=== PATIENT | male | born 1975 | race Caucasian/White ===

== ENCOUNTER 2016-07-04 09:33 | Emergency (ER) | payer SELFPAY ==
[~2016-07-04] VITALS: Ht 170.2 cm; Wt 95.5 kg
[~2016-07-04 09:33] MED LIST: CIPR-9 PO; METR-1 PO; NORC5TAB PO
[2016-07-04 09:35] VITALS: BP 175/98; PULSE 88; RESP 16; TEMP 98.2; O2SAT 98
[2016-07-04] MEDS ORDERED: CEPH-460 PO (10:13)
[2016-07-04] MEDS ORDERED: IBUP800T23 PO (10:13)
[2016-07-04] MEDS ORDERED: BACT800T5 PO (10:13)
--- NOTE | 2016-07-04 11:31 | PD ---
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 Since yesterday he has had pain and swelling in the perineal region. Pain is a throbbing pain is constant and worse when sitting. Most recently he was seen here in March 2016 for this issue and at that time bedside incision and drainage was performed by colorectal surgeon Dr. Rodriguez. He has had no drainage, no fevers or chills, no abdominal pain. He has no other complaints at this time. PFSH Past Medical History Blood Disorders: No Heart Rhythm Problems: No Cancer: No Cardiovascular Problems: No High Cholesterol: No Chemotherapy: No Diabetes: No Diminished Hearing: No Endocrine: No Gastrointestinal Disorders: Yes (GALLSTONES) GERD: No Genitourinary: No Hepatitis: No Hiatal Hernia: No Hypertension: No Immune Disorder: No Musculoskeletal: No Neurologic: No Psychiatric: No Reproductive: No Respiratory: No Integumentary: Yes (PREVIOUS ABCESS IN PERINEAL AREA ) Radiation Therapy: No Ulcer: No Past Surgical History Abdominal Surgery: Yes (APPENDECTOMY) AICD: No Appendectomy: Yes Arteriovenous Shunt: No Cardiac Surgery: No Cholecystectomy: No Ear Surgery: No Endocrine Surgery: No Eye Surgery: No Genitourinary Surgery: No Gynecologic Surgery: No Insulin Pump: No Joint Replacement: No Oral Surgery: No Pacemaker: No Thoracic Surgery: No Other Surgery: Yes Social History Alcohol Use: Yes (2 beer/day) Tobacco Use: Yes (< 1 PPD) Substance Use: Yes (marijauna) Allergies-Medications (Allergen,Severity, Reaction): Coded Allergies: Codeine (Verified Allergy, Mild, NAUSEA, 07/04/16) Reported Meds & Prescriptions Reported Meds & Active Scripts Active Flagyl (Metronidazole) 500 Mg Tab 500 Mg PO BID 7 Days Cipro (Ciprofloxacin HCl) 500 Mg Tab 500 Mg PO BID 7 Days Review of Systems General / Constitutional: No: Fever, Chills Gastrointestinal: No: Nausea, Vomiting, Abdominal Pain Skin: Positive Other (soft tissue swelling, pain in the perineal region) Physical Exam Narrative GENERAL: Well-developed well-nourished male in no acute distress SKIN: Warm and dry. Examination reveals an area of induration in the perineum, tender to palpation. There is no drainage. : Normal appearing testicles and scrotum without erythema or induration of the scrotal farrar. HEAD: Atraumatic. Normocephalic. EYES: Pupils equal and round. No scleral icterus. No injection or drainage. ENT: No nasal bleeding or discharge. Mucous membranes pink and moist. NECK: Trachea midline. No JVD. CARDIOVASCULAR: Regular rate and rhythm. No murmur appreciated. RESPIRATORY: No accessory muscle use. Clear to auscultation. Breath sounds equal bilaterally. GASTROINTESTINAL: Abdomen soft, non-tender, nondistended. Hepatic and splenic margins not palpable. MUSCULOSKELETAL: No obvious deformities. No clubbing. No cyanosis. No edema. NEUROLOGICAL: Awake and alert. No obvious cranial nerve deficits. Motor grossly within normal limits. Normal speech. PSYCHIATRIC: Appropriate mood and affect; insight and judgment normal. Data Data Last Documented VS Vital Signs Date Time Temp Pulse Resp B/P Pulse Ox O2 Delivery O2 Flow Rate FiO2 07/04/16 09:35 98.2 88 16 175/98 98 Orders Ed Poc Ultrasound (07/04/16 ) Mandatory Outpatient Referral (07/04/16 12:36) [facility] Medical Decision Making Medical Screen Exam Complete: Yes Emergency Medical Condition: Yes Medical Record Reviewed: Yes Differential Diagnosis Recurrent perineal abscess, infected cyst, cellulitis, myositis Narrative Course 41-year-old male with history of recurrent perineal abscess formation presents for evaluation of 2 days of pain and soft tissue swelling the perineal region. On examination there is induration with no drainage or obvious fluctuance. Bedside ultrasound does reveal some area of hypoechoicity about 1.5 cm deep to the skin. We will contact colorectal surgeon on-call. Discussed with Dr. Rodriguez who performed previous incision and drainage and March 2016. He would like to see the patient tomorrow, July 05, in his [place] office. A mandatory outpatient referral has been placed. The patient is being discharged with Flagyl and Cipro. Diagnosis Primary Impression: Perineal abscess Referrals: Luis Rodriguez MD Additional Instructions: Follow-up with Dr. Rodriguez tomorrow in his [place] location, call his office to make an appointment and confirm the address. Warm baths 15-20 minutes at a time 3-4 times a day. Take antibiotics as prescribed. Return for any emergent medical conditions. Med/Other Pt SpecificInfo: Prescription(s) given Scripts Metronidazole (Flagyl)500 Mg [id number] Mg PO BID 7 Days Ref 0 Prov:Kusum Hicks MD 07/04/16 Ciprofloxacin (Cipro)500 Mg [id number] Mg PO BID 7 Days Ref 0 Prov:Kusum Hicks MD 07/04/16 Disposition: 01 DISCHARGE HOME Condition: Stable Clarke Arguelles Jul 04, 2016 11:31
[2016-07-04] MEDS ORDERED: METR-1 PO (12:40)
[2016-07-04] MEDS ORDERED: CIPR-9 PO (12:40)
--- NOTE | 2016-07-04 12:57 | PD ---
Data Data Last Documented VS Vital Signs Date Time Temp Pulse Resp B/P Pulse Ox O2 Delivery O2 Flow Rate FiO2 07/04/16 09:35 98.2 88 16 175/98 98 Orders Ed Poc Ultrasound (07/04/16 ) Mandatory Outpatient Referral (07/04/16 12:36) [facility] Supervised Visit with TAMMY: Yes Narrative Course The history, exam, and medical decision-making in the associated midlevel provider note were completed with my assistance. I reviewed and agree with the findings presented. I attest that I had a [id number] encounter with the patient on the same day, and personally performed and documented my assessment and findings in the medical record. *My assessment and Findings: This is a 41-year-old male who presents to the emergency department having had a peroneal abscess last drained in March by Dr. Rodriguez with increasing swelling and redness in the area of his prior abscess. On exam he has some induration and erythema but no fluctuance. A bedside ultrasound was performed which demonstrates a small fluid pocket but it nothing easily drainable in the emergency department. We spoke to Dr. Rodriguez. I think it's threes normal for the patient to be discharged on antibiotics and for him to follow up in clinic. We placed the mandatory referral. Patient was discharged home. Procedures Procedure Narrative Soft tissue ultrasound: Obvious cellulitis of the perineum with a small likely early abscess deeper than 1 cm Diagnosis Primary Impression: Perineal abscess Referrals: Luis Rodriguez MD Patient Instructions: General Instructions Departure Forms: Tests/Procedures Additional Instruction: Follow-up with Dr. Rodriguez tomorrow in his [place] location, call his office to make an appointment and confirm the address. Warm baths 15-20 minutes at a time 3-4 times a day. Take antibiotics as prescribed. Return for any emergent medical conditions. Scripts Metronidazole (Flagyl)500 Mg [id number] Mg PO BID 7 Days Ref 0 Prov:Kusum Hicks MD 07/04/16 Ciprofloxacin (Cipro)500 Mg [id number] Mg PO BID 7 Days Ref 0 Prov:Kusum Hicks MD 07/04/16 Disposition: 01 DISCHARGE HOME Condition: Stable Kusum Hicks MD Jul 04, 2016 12:57
== END 2016-07-04 13:02 | disposition home or self-care (01) ==
LOC: NEPB 09:33
DX: L02.215 Cutaneous abscess of perineum (principal)
CPT/HCPCS: 99283

== ENCOUNTER 2016-07-05 13:28 | Day surgery (SDC) | payer SELFPAY ==
[~2016-07-05] VITALS: Ht 170.2 cm; Wt 96.8 kg
[~2016-07-05 13:28] MED LIST changes: +BACT800T5 PO; +CEPH-460 PO; +IBUP800T23 PO; +NEOSTIGMINE 3 MG/3 ML SYR IV ONE; +ONDANSETRON HCL 4 MG/2 ML VIAL IV PUSH ONE; +PROPOFOL 200 MG/20 ML AMP IV ONE
[2016-07-05] MEDS ORDERED: METOPROLOL TARTRATE 25 MG TAB PO PRN (14:00)
[2016-07-05] MEDS ORDERED: SODIUM CHLORID 0.9% 500 ML IV SCH (14:00)
[2016-07-05] MEDS ORDERED: INSULIN HUMAN REGULAR 1,000 UNITS/10 ML VIAL SQ PRN (14:00)
[2016-07-05] MEDS ORDERED: LACTATED RINGER'S 1000 ML IV SCH (14:00)
[2016-07-05 14:31] VITALS: BP 149/88; PULSE 95; RESP 18; TEMP 98.8; O2SAT 98
[2016-07-05] MEDS ORDERED: DEXAMETHASONE SOD PHOS 4 MG/ML VIAL ONE (15:39)
[2016-07-05] MEDS ORDERED: BUPIVACAINE/EPINEPHRINE 0.5% PF 30 ML VIAL ONE (15:39)
[2016-07-05] MEDS ORDERED: MIDAZOLAM HCL 2 MG/2 ML VIAL ONE (15:39)
[2016-07-05] MEDS ORDERED: SUGAMMADEX SODIUM 200 MG/2 ML VIAL IV PUSH ONE ×2 (15:39)
[2016-07-05] MEDS ORDERED: LIDOCAINE 1%/EPINEPHrine 1:100,000 SOLN 20 ML VIAL ONE (15:40)
[2016-07-05] MEDS ORDERED: ceFAZolin 2 GM PREMIX 50 ML ONE (16:01)
[2016-07-05] MEDS ORDERED: metroNIDAZOLE 500 MG INJ 100 ML IV ONE (16:01)
--- NOTE | 2016-07-05 16:24 | PD.HP.UP ---
H&P Update Note The Pre-Admit History and Physical Examination regarding the above named patient was reviewed (including, but not limited to, vital signs, heart, lungs, co-morbid conditions), and upon re-examination it is noted that: the patient's condition has not significantly changed since the last examination. Luis Rodriguez MD Jul 05, 2016 16:24
--- NOTE | 2016-07-05 17:19 | HHI.PR ---
Immediate Post Op Note Procedure Date: Jul 05, 2016 Pre Op Diagnosis: Ischiorectal abscess Post Op Diagnosis: same Surgeon: Luis Rodriguez Certifed Refrigeration Operator(s): none Procedure: EUA + draingage abscess, fistulotomy, seton placement Findings: lg ant abscess, extending into perineal body fistula ant mid line Complications: none Estimated blood loss: min Anesthesia: General Drains: Other IVF Patient to: PACU Patient Condition: Good Luis Rodriguez MD Jul 05, 2016 17:19
[2016-07-05] MEDS ORDERED: DO NOT ADM ANY ANTICOAGULANT DRUGS XX PRN (17:26)
[2016-07-05] MEDS ORDERED: fentaNYL CITRATE 250 MCG/5 ML AMP ONE (17:35)
[2016-07-05] MEDS ORDERED: *morphine SULFATE 8 MG/ML PERIprocedure ONLY ONE (17:58)
[2016-07-05] MEDS ORDERED: ONDANSETRON HCL 4 MG/2 ML VIAL IV PUSH PRN (18:00)
[2016-07-05] MEDS ORDERED: oxyCODONE/ACETAMINOPHEN 5 MG/325 MG TAB PO PRN (18:00)
[2016-07-05] MEDS ORDERED: MORPHINE SULFATE 4 MG/ML INJ IV PRN (18:00)
--- NOTE | 2016-07-10 08:13 | MP ---
cc: MANUEL YODER M.D. DATE OF SURGERY July 05, 2016 PREOPERATIVE DIAGNOSIS Recurrent ischiorectal abscess. PROCEDURE Exam under anesthesia with incision and drainage of large ischiorectal abscess, fistulotomy and placement of a seton. POSTOPERATIVE DIAGNOSIS Recurrent ischiorectal abscess with fistula. SURGEON Dr. Yoder PROCEDURE The patient was placed in the supine position. After adequate general anesthesia, he was turned and placed in the prone jackknife position. His buttocks were taped apart, prepped with Betadine solution and draped in the usual sterile fashion. Examination revealed cellulitis and swelling and induration along the perineal body extending toward the anal verge as well as toward the base of the scrotum. The anal canal was dilated and a half-shannon retractor inserted. Examination did reveal a small subcutaneous fistula in the anterior midline and this was probed and opened along its tract. There did appear to be a defect in the anterior midline but did not appear to drain the abscess. Therefore a radial incision was made along the perineal body entering a large cavity full of foul-smelling, purulent fluid. The cavity was opened along the extent of its length and was probed digitally, did appear to extend up toward the anterior part of the rectum. With a lacrimal probe, the previously identified defect in the anterior midline appeared to communicate with this large cavity. Therefore the incision was extended toward the anterior midline, dividing some of the anterior external sphincter. The remainder of the sphincter was encircled with a vessel loop which was tied loosely for a seton. The cavity was then irrigated copiously. Other loculations and some debridement of the subcu tissue was undertaken, hemostasis achieved. The cavity was then packed loosely with a large Kerlix dressing and a 4x4 gauze dressing externally. The patient tolerated the procedure quite well and was brought to the recovery room in stable condition. MD DAYSI Dubon/AUGUSTINE /3:11 PM /7:55 AM
== END 2016-07-05 18:40 | disposition home or self-care (01) ==
LOC: HSDC 13:28
PROVIDERS: ATTEND Colon & Rectal Surgery
DX: K61.3 Ischiorectal abscess (principal); B96.20 Unspecified Escherichia coli [E. coli] as the cause of diseases classified elsewhere
CPT/HCPCS: 00902; 46060; 86403; 87015; 87070; 87077; 87102; 87116; 87186; 87205; 87206; J0690; J1100; J2250; J2270; J2405; J2710; J3010

== ENCOUNTER 2017-01-21 10:17 | Emergency (ER) | payer SELFPAY ==
[~2017-01-21] VITALS: Ht 170.2 cm; Wt 100.0 kg
[~2017-01-21 10:17] MED LIST changes: -BACT800T5 PO; -CEPH-460 PO; -IBUP800T23 PO; -NEOSTIGMINE 3 MG/3 ML SYR IV ONE; -NORC5TAB PO; -ONDANSETRON HCL 4 MG/2 ML VIAL IV PUSH ONE; -PROPOFOL 200 MG/20 ML AMP IV ONE
[2017-01-21 10:18] VITALS: BP 168/93; PULSE 95; RESP 18; TEMP 98.6; O2SAT 95
--- NOTE | 2017-01-21 11:48 | PD ---
HPI Chief Complaint: Skin Problem Time Seen by Provider: 11:02 Travel History International Travel<30 days: No Contact w/Intl Traveler<30days: No Traveled to known affect area: No History of Present Illness HPI 41-year-old male with history of frequent perianal abscesses presents emergency department for evaluation of pain and swelling to the perineum the last 24 hours. Patient denies fever, chills, abdominal pain or drainage from the site. He was last treated June [address] Rodriguez where incision and drainage of the abscess was performed and vessel loop placed. Patient reports the drain was never removed due to insurance complications. PFSH Past Medical History Blood Disorders: No Heart Rhythm Problems: No Cancer: No Cardiovascular Problems: No High Cholesterol: No Chemotherapy: No Diabetes: No Diminished Hearing: No Endocrine: No Gastrointestinal Disorders: No (GALLSTONES) GERD: No Genitourinary: No Hepatitis: No Hiatal Hernia: No Hypertension: No Immune Disorder: No Musculoskeletal: No Neurologic: No Psychiatric: No Reproductive: No Respiratory: No Integumentary: Yes (PREVIOUS ABCESS IN PERINEAL AREA ) Radiation Therapy: No Thyroid Disease: No Ulcer: No Influenza Vaccination: No Past Surgical History Abdominal Surgery: No AICD: No Appendectomy: Yes Arteriovenous Shunt: No Cardiac Surgery: No Cholecystectomy: No Ear Surgery: No Endocrine Surgery: No Eye Surgery: No Genitourinary Surgery: No Gynecologic Surgery: No Insulin Pump: No Joint Replacement: No Oral Surgery: No Pacemaker: No Thoracic Surgery: No Other Surgery: Yes ( RECTAL ABCESS X 3) Social History Alcohol Use: Yes (2 beer/day) Tobacco Use: Yes ( 1 PPD) Substance Use: Yes (MARIJUANA 2-3 TIMES WEEKLY) Allergies-Medications (Allergen,Severity, Reaction): Coded Allergies: codeine (Unverified Allergy, Mild, NAUSEA, 11/26/16) Reported Meds & Prescriptions Reported Meds & Active Scripts Active Cipro (Ciprofloxacin HCl) 500 Mg Tab 500 Mg PO BID 7 Days Flagyl (Metronidazole) 500 Mg Tab 500 Mg PO BID 7 Days Review of Systems Except as stated in HPI: all other systems reviewed are Neg General / Constitutional: No: Fever Physical Exam Narrative GENERAL: Well-nourished, well-developed patient. SKIN: Focused skin assessment warm/dry. approximately 6x4 cm area of erythema & induration to the perineum without fluctuance. There is a vessel loop drain present. The erythema/induration does not extend into the testes. Small amount of serosanguineous drainage from this a loop drain site. HEAD: Normocephalic. EYES: No scleral icterus. No injection or drainage. NECK: Supple, trachea midline. No JVD or lymphadenopathy. CARDIOVASCULAR: Regular rate and rhythm without murmurs, gallops, or rubs. RESPIRATORY: Breath sounds equal bilaterally. No accessory muscle use. GASTROINTESTINAL: Abdomen soft, non-tender, nondistended. Data Data Last Documented VS Vital Signs Date Time Temp Pulse Resp B/P (MAP) Pulse Ox O2 Delivery O2 Flow Rate FiO2 01/21/17 10:18 98.6 95 18 168/93 (118) 95 Room Air Orders Orders Mandatory Outpatient Referral (01/21/17 11:58) [facility] Medical Decision Making Medical Screen Exam Complete: Yes Emergency Medical Condition: Yes Differential Diagnosis Perianal abscess, cellulitis, Narrative Course 41-year-old male with history of multiple perianal abscesses presents to the emergency department for evaluation of pain and tenderness to the perineum for the last 24 hours. Patient was last seen in June [address] Rodriguez where he had incision and drainage of perianal abscess. At that time he had a vessel loop drain placed which was never removed due to "insurance purposes" per patient. He denies fever or chills. He is well-appearing and nontoxic. On exam there is an approximate 6 x 4 cm area of induration and erythema without fluctuance to the perineum with a small amount of serosanguineous drainage coming from the drain site. Call placed to Dr. Rodriguez vascular technologist sonographer colorectal surgeon. 1150 spoke with the on-call colorectal surgeon Dr. Rodriguez regarding patient's case. The patient is well known to him. Discussed patient's presentation and physical exam. He recommends Cipro and Flagyl oral antibiotics and have patient follow-up with him in office this week. He recommends leaving the vessel loop drain in place. Given that the patient is nontoxic-appearing and his vital signs are stable. Oral antibiotics and outpatient follow-up is planned. Diagnosis Primary Impression: Perianal cellulitis Referrals: Luis Rodriguez MD Additional Instructions: Take the antibiotics as prescribed. Take [id number] Motrin 600-800 mg every 6-8 hours as needed for pain. You are to make an appointment with Dr. Rodriguez the colorectal surgeon this week. Return to the emergency department if he developed fever, chills, severe increasing pain or any new concerning symptom Scripts Ciprofloxacin (Cipro) 500 Mg Tab 500 MG PO BID for Infection for 7 Days, TAB 0 Refills Prov: Carine Riley 01/21/17 Metronidazole (Flagyl) 500 Mg Tab 500 MG PO BID for Infection for 7 Days, TAB 0 Refills Prov: Carine Riley 01/21/17 Disposition: 01 DISCHARGE HOME Condition: Stable Carine Riley Jan 21, 2017 11:48
[2017-01-21] MEDS ORDERED: CIPR-9 PO (11:56)
[2017-01-21] MEDS ORDERED: METR-1 PO (11:56)
[2017-01-21 12:12] VITALS: BP 138/92
[2017-01-21] MEDS ORDERED: KETOROLAC TROMETHAMINE 60 MG/2 ML (IM) VIAL IM ONE (12:15)
== END 2017-01-21 12:38 | disposition home or self-care (01) ==
LOC: NEPD 10:17
DX: K61.0 Anal abscess (principal)
CPT/HCPCS: 96372; 99284; J1885

== ENCOUNTER 2017-01-23 03:12 | Inpatient (IN) | payer SELFPAY ==
[~2017-01-23] VITALS: Ht 170.2 cm; Wt 101.7 kg
[2017-01-23] VITALS (9 sets, daily range): BP systolic 128–188; BP diastolic 72–108; PULSE 66–99; RESP 16–21; TEMP 96.2–99; O2SAT 96–98
[2017-01-23] MEDS ORDERED: PIPERACIL-TAZO 3.375 GM PREMIX 50 ML IV ONE (04:30)
[2017-01-23] MEDS ORDERED: VANCOMYCIN INJ 1,000 MG in SODIUM CHLOR 0.9% 250 ML INJ 250 ML IV ONE (04:30)
--- NOTE | 2017-01-23 04:30 | PD ---
HPI Chief Complaint: Bleeding Time Seen by Provider: 04:13 Travel History International Travel<30 days: No Contact w/Intl Traveler<30days: No Traveled to known affect area: No History of Present Illness HPI 41-year-old male complains of pain and swelling and discharge and bleeding from the perineal area. Patient states that symptoms started several days ago. Patient was seen in emergency room yesterday and was given the option for Cipro and Flagyl. Patient states that he has not had a chance to fill the prescription. Patient states that he has increasing pain and swelling to the groin area especially the scrotum area. Patient states that he has some bleeding from the rectal area this evening also. Patient denies any fever chills. Patient denies any dysuria or frequency. Patient has history of recurrent perianal abscess and was seen by Dr. gant is in the past. Patient states that he had vessel Loop drain placed in the past and the device still in place. Patient has appointment with Dr. Rodriguez later this afternoon. PFSH Past Medical History Blood Disorders: No Heart Rhythm Problems: No Cancer: No Cardiovascular Problems: No High Cholesterol: No Chemotherapy: No Diabetes: No Diminished Hearing: No Endocrine: No GERD: No Genitourinary: No Hepatitis: No Hiatal Hernia: No Hypertension: No Immune Disorder: No Musculoskeletal: No Neurologic: No Psychiatric: No Reproductive: No Respiratory: No Integumentary: Yes (PREVIOUS ABCESS IN PERINEAL AREA ) Radiation Therapy: No Thyroid Disease: No Ulcer: No Tetanus Vaccination: Unknown Influenza Vaccination: No Past Surgical History Abdominal Surgery: No AICD: No Appendectomy: Yes Arteriovenous Shunt: No Cardiac Surgery: No Cholecystectomy: No Ear Surgery: No Endocrine Surgery: No Eye Surgery: No Genitourinary Surgery: No Gynecologic Surgery: No Insulin Pump: No Joint Replacement: No Oral Surgery: No Pacemaker: No Thoracic Surgery: No Other Surgery: Yes ( RECTAL ABCESS X 3) Social History Alcohol Use: Yes (2 beer/day) Tobacco Use: Yes ( 1 PPD) Substance Use: Yes (MARIJUANA 2-3 TIMES WEEKLY) Allergies-Medications (Allergen,Severity, Reaction): Coded Allergies: codeine (Verified Allergy, Mild, NAUSEA, 01/23/17) Reported Meds & Prescriptions Reported Meds & Active Scripts Active Cipro (Ciprofloxacin HCl) 500 Mg Tab 500 Mg PO BID 7 Days Flagyl (Metronidazole) 500 Mg Tab 500 Mg PO BID 7 Days Review of Systems General / Constitutional: No: Fever Eyes: No: Visual changes HENT: No: Headaches Cardiovascular: No: Chest Pain or Discomfort Respiratory: No: Shortness of Breath Gastrointestinal: No: Abdominal Pain Genitourinary: No: Dysuria Musculoskeletal: No: Pain Skin: No Rash Neurologic: No: Weakness Psychiatric: No: Depression Endocrine: No: Polydipsia Hematologic/Lymphatic: No: Easy Bruising Physical Exam Narrative GENERAL: Well-nourished, well-developed patient. SKIN: Focused skin assessment warm/dry. HEAD: Normocephalic. EYES: No scleral icterus. No injection or drainage. NECK: Supple, trachea midline. No JVD or lymphadenopathy. CARDIOVASCULAR: Regular rate and rhythm without murmurs, gallops, or rubs. RESPIRATORY: Breath sounds equal bilaterally. No accessory muscle use. GASTROINTESTINAL: Abdomen soft, non-tender, nondistended. MUSCULOSKELETAL: No cyanosis, or edema. BACK: Nontender without obvious deformity. No CVA tenderness. exam: Patient has redness swelling tenderness involving scrotum, perineal and perirectal area. Some induration noted. Patient has serosanguineous discharge from the area. No active bleeding. Data Data Last Documented VS Vital Signs Date Time Temp Pulse Resp B/P (MAP) Pulse Ox O2 Delivery O2 Flow Rate FiO2 01/23/17 04:38 16 98 Room Air 01/23/17 03:25 98.1 92 Orders Orders Complete Blood Count With Diff (01/23/17 04:20) Comprehensive Metabolic Panel (01/23/17 04:20) Prothrombin Time / Inr (Pt) (01/23/17 04:20) Act Partial Throm Time (Ptt) (01/23/17 04:20) Blood Culture (01/23/17 04:20) Iv Access Insert/Monitor (01/23/17 04:20) Ecg Monitoring (01/23/17 04:20) Oximetry (01/23/17 04:20) Sodium Chlor 0.9% 1000 Ml Inj (Ns 1000 M (01/23/17 04:30) Vancomycin Inj (Vancomycin Inj) (01/23/17 04:30) Piperacil-Tazo 3.375 Gm Premix (Zosyn 3. (01/23/17 04:30) Labs Laboratory Tests Test 01/23/17 05:06 White Blood Count 15.9 TH/MM3 Red Blood Count 3.91 MIL/MM3 Hemoglobin 14.2 GM/DL Hematocrit 40.7 % Mean Corpuscular Volume 104.1 FL Mean Corpuscular Hemoglobin 36.4 PG Mean Corpuscular Hemoglobin Concent 35.0 % Red Cell Distribution Width 12.8 % Platelet Count 159 TH/MM3 Mean Platelet Volume 10.0 FL Neutrophils (%) (Auto) 72.9 % Lymphocytes (%) (Auto) 13.3 % Monocytes (%) (Auto) 11.0 % Eosinophils (%) (Auto) 1.8 % Basophils (%) (Auto) 1.0 % Neutrophils # (Auto) 11.6 TH/MM3 Lymphocytes # (Auto) 2.1 TH/MM3 Monocytes # (Auto) 1.7 TH/MM3 Eosinophils # (Auto) 0.3 TH/MM3 Basophils # (Auto) 0.2 TH/MM3 CBC Comment DIFF FINAL Differential Comment Prothrombin Time 11.3 SEC Prothromb Time International Ratio 1.0 RATIO Activated Partial Thromboplast Time 28.5 SEC Blood Urea Nitrogen 7 MG/DL Creatinine 0.76 MG/DL Random Glucose 389 MG/DL Total Protein 7.1 GM/DL Albumin 3.1 GM/DL Calcium Level 8.8 MG/DL Alkaline Phosphatase 107 U/L Aspartate Amino Transf (AST/SGOT) 28 U/L Alanine Aminotransferase (ALT/SGPT) 50 U/L Total Bilirubin 0.7 MG/DL Sodium Level 136 MEQ/L Potassium Level 3.4 MEQ/L Chloride Level 102 MEQ/L Carbon Dioxide Level 25.9 MEQ/L Anion Gap 8 MEQ/L Estimat Glomerular Filtration Rate 112 ML/MIN [facility] Medical Decision Making Medical Screen Exam Complete: Yes Emergency Medical Condition: Yes Interpretation(s) 6:06 AM. CBC WBC 15.9. MCV 104.1. 72 neutrophil. Potassium 3.4. Glucose 389. Differential Diagnosis Differential diagnosis including perineal abscess, Lakisha's gangrene Narrative Course 41-year-old male with redness swelling discharged from the perineal area. History of recurrent perirectal abscess. Normal saline solution 1 25 cc an hour. Vancomycin 1 g IV. Zosyn 3.375 g IV given. Diagnosis Primary Impression: Perineal abscess Nura Dyer MD Jan 23, 2017 04:30
[2017-01-23] MEDS: SODIUM CHLOR 0.9% 1000 ML INJ 1,000 ML IV SCH ×4 (05:14→23:51)
[2017-01-23 05:19] LABS: AUTOMATED NEUTROPHIL # 11.6 TH/MM3 (1.8-7.7); BASOPHIL # 0.2 TH/MM3 (0-0.2); EOSINOPHIL # 0.3 TH/MM3 (0-0.4); EOSINOPHIL % 1.8 % (0.0-4.0); HEMATOCRIT 40.7 % (39.0-51.0); HEMO FLAGS DIFF FINAL; LYMPH % 13.3 % (9.0-44.0); LYMPHOCYTE # 2.1 TH/MM3 (1.0-4.8); MEAN CELL VOLUME 104.1 FL (80.0-100.0); MEAN CORPUSCULAR HEMOGLOBIN 36.4 PG (27.0-34.0); NEUT % 72.9 % (16.0-70.0); PLATELET COUNT 159 TH/MM3 (150-450); RED BLOOD COUNT 3.91 MIL/MM3 (4.50-5.90); RED CELL DISTRIBUTION WIDTH 12.8 % (11.6-17.2); WHITE BLOOD COUNT 15.9 TH/MM3 (4.0-11.0)
[2017-01-23 05:32] LABS: PROTHROMBIN TIME - PATIENT 11.3 SEC (9.8-11.6)
[2017-01-23 05:40] LABS: ALT (GPT) 50 U/L (12-78); ANION GAP 8 MEQ/L (5-15); APTT (PATIENT) 28.5 SEC (24.3-30.1); AST (GOT) 28 U/L (15-37); BICARBONATE 25.9 MEQ/L (21.0-32.0); BLOOD UREA NITROGEN 7 MG/DL (7-18); CHLORIDE 102 MEQ/L (98-107); GLOMERULAR FILTRATION RATE 112 ML/MIN (>89); POTASSIUM 3.4 MEQ/L (3.5-5.1); SODIUM (NA) 136 MEQ/L (136-145)
[2017-01-23 05:42] LABS: ALKALINE PHOSPHATASE 107 U/L (45-117); TOTAL BILIRUBIN ADULT 0.7 MG/DL (0.2-1.0)
[2017-01-23] MEDS ORDERED: Vancomycin Consult Pharmacy 1 EA OTHER SCH (06:30)
[2017-01-23] MEDS ORDERED: NALOXONE HCL 0.4 MG/ML AMP IV PUSH PRN (06:30)
[2017-01-23] MEDS ORDERED: SODIUM CHLORIDE 0.9% FLUSH 10 ML FLUSH IV FLUSH PRN (06:30)
[2017-01-23] MEDS: CIPROFLOXACIN 400 MG PREMIX 200 ML IV SCH ×2 (07:41→19:21)
[2017-01-23] MEDS ORDERED: VANCOMYCIN 1,000 MG/NS 250 ML IV SCH ×2 (09:00)
[2017-01-23] MEDS ORDERED: DEXTROSE 50% IN WATER 50 ML VIAL(D50) IV PUSH PRN (10:30)
[2017-01-23] MEDS ORDERED: GLUCAGON 1 MG/ML VIAL OTHER PRN (10:30)
[2017-01-23] MEDS: SODIUM CHLORIDE 0.9% FLUSH 10 ML FLUSH IV FLUSH SCH ×2 (11:16→21:00)
[2017-01-23] MEDS ORDERED: SUCCINYLCHOLINE CHLORIDE 100 MG/5 ML SYRINGE IV PUSH ONE (12:00)
[2017-01-23] MEDS ORDERED: PROPOFOL 200 MG/20 ML AMP IV ONE (12:00)
[2017-01-23] MEDS: INSULIN ASPART SUPPLEMENTAL SCALE SQ SCH ×3 (12:00→22:07)
[2017-01-23] MEDS ORDERED: ESMOLOL HCL 100 MG/10 ML VIAL IV ONE (12:00)
[2017-01-23] MEDS ORDERED: MIDAZOLAM HCL 2 MG/2 ML VIAL IV ONE (12:00)
[2017-01-23] MEDS ORDERED: LIDOCAINE HCL 1% PF 5 ML AMPULE OTHER ONE (12:00)
[2017-01-23] MEDS ORDERED: IOHEXOL 350 MG/ML 10 ML VIAL (for RAD DIAG) IVCONTRAST ONE (12:02)
--- NOTE | 2017-01-23 12:14 | HHI.HP ---
HPI Service [facility] Hospitalists Primary Care Physician No Primary Care Physician Admission Diagnosis peroneal abscess Diagnoses: Chief Complaint: Pain, swelling and drainage from perineal abscess Travel History International Travel<30 Days: No Contact w/Intl Traveler <30 Da: No Traveled to Known Affected Are: No Sepsis Criteria SIRS Criteria (2 or more): Heart rate over 90, WBC > 57740, < 4000 or > 10% bands Sepsis Criteria (SIRS+source): Infect source susp/known Criteria Outcome: Meets sepsis criteria History of Present Illness Written by Holley Singh, acting as scribe for Dr. Thomas on 01/23/17 at 11:56. This is a 41-year-old male with a past medical history significant for recurrent perianal abscesses who presents to [facility] ED with complaints of pain and swelling in the perineal and scrotal area for the past 4 days. He recently underwent I&D of large ischiorectal abscess, fistulotomy and placement of a seton performed by Dr. Rodriguez on 07/10/16 and actually has a follow-up appointment with Dr. Rodriguez this afternoon. Per ED note, patient came into the emergency room with same complaints yesterday was given a prescription for Cipro and Flagyl which he did not fill. Patient reports that early this morning he got up and felt a pinch in the perineal area and began draining a large amount of pus and blood. Patient denies any fever chills or night sweats at home. Denies any vision changes or headache. Denies any nausea, vomiting or abdominal pain. Denies any chest pain or shortness of breath. Does states he has increased pain in the area with bowel movements. Review of Systems Except as stated in HPI: all other systems reviewed are Neg Past Family Social History Past Medical History Recurrent perineal abscess Past Surgical History 07/10/16 I&D of large ischiorectal abscess, fistulotomy and placement of a seton performed by Dr. Rodriguez 03/22/14 I&D of perineal abscess and drain placement performed by Dr. Porter Appendectomy Reported Medications Patient denies taking any medications at home Allergies: Coded Allergies: codeine (Verified Allergy, Mild, NAUSEA, 01/23/17) Active Ordered Medications Current Medications Medications (Trade) Dose Ordered Sig/Harris Route Start Time Stop Time Status Last Admin Sodium Chloride 1,000 ml @ 75 mls/hr [id number] IV 01/23/17 04:30 01/23/17 05:14 (NS Flush) 2 ml UNSCH PRN IV FLUSH 01/23/17 06:30 (NS Flush) 2 ml BID IV FLUSH 01/23/17 09:00 01/23/17 11:16 (Narcan Inj) 0.4 mg UNSCH PRN IV PUSH 01/23/17 06:30 Pharmacy Profile Note 0 ml @ 0 mls/hr UNSCH OTHER 01/23/17 06:30 Piperacillin Sod/ Tazobactam Sod 100 ml @ 200 mls/hr Q6H IV 01/23/17 11:00 Ciprofloxacin/ Dextrose 200 ml @ 200 mls/hr Q12H IV 01/23/17 07:00 01/23/17 07:41 Vancomycin HCl 1000 mg/Sodium Chloride 250 ml @ 250 mls/hr DAILY IV 01/23/17 09:00 01/23/17 12:45 01/23/17 11:17 (D50w (Vial) Inj) 50 ml UNSCH PRN IV PUSH 01/23/17 10:30 UNV (Glucagon Inj) 1 mg UNSCH PRN OTHER 01/23/17 10:30 UNV (NovoLOG SUPPLEMENTAL SCALE) 1 ACHS SLIDING SCALE SQ 01/23/17 12:00 UNV Family History Mother, , stroke Father, alive and healthy Social History Patient presented tobacco use history of 1 pack per day. He reports alcohol consumption of 2 beers daily. He denies any history of IV drug use but reports marijuana use 2-3 times a week. Physical Exam Vital Signs Vital Signs Date Time Temp Pulse Resp B/P (MAP) Pulse Ox O2 Delivery O2 Flow Rate FiO2 01/23/17 08:36 01/23/17 07:35 67 18 128/81 (97) 98 Room Air 01/23/17 06:33 72 18 131/72 (91) 97 Room Air 01/23/17 04:38 16 98 Room Air 01/23/17 03:25 98.1 92 18 141/89 (106) 98 Room Air 01/23/17 03:16 99.0 99 20 188/108 (134) Physical Exam GENERAL: This is a well-nourished, well-developed patient, in no apparent distress. Lying in hospital bed. Appears comfortable present. SKIN: Warm and dry. Multiple tattoos noted. HEAD: Atraumatic. Normocephalic. No temporal or scalp tenderness. EYES: Pupils equal round and reactive. Extraocular motions intact. No scleral icterus. No injection or drainage. ENT: Nose without bleeding, purulent drainage. Throat without erythema, tonsillar hypertrophy or exudate. Uvula midline. Airway patent. NECK: Trachea midline. No JVD or lymphadenopathy. Supple, nontender, no meningeal signs. CARDIOVASCULAR: Regular rate and rhythm without murmurs, gallops, or rubs. RESPIRATORY: Clear to auscultation. Breath sounds equal bilaterally. No wheezes , rales, or rhonchi. GASTROINTESTINAL: Abdomen soft, non-tender, nondistended. No hepato-splenomegaly , or palpable masses. No guarding. GENITOURINARY: Patient has redness and swelling with associated tenderness involving the perineal and perirectal area as well as the scrotum. Serosanguineous drainage noted from the area. No active bleeding appreciated. MUSCULOSKELETAL: Extremities without clubbing, cyanosis, or edema. No joint tenderness, effusion, or edema noted. No calf tenderness. NEUROLOGICAL: Awake and alert. Able to move all extremities spontaneously. Normal speech. Laboratory Laboratory Tests Test 01/23/17 05:06 White Blood Count 15.9 Red Blood Count 3.91 Hemoglobin 14.2 Hematocrit 40.7 Mean Corpuscular Volume 104.1 Mean Corpuscular Hemoglobin 36.4 Mean Corpuscular Hemoglobin Concent 35.0 Red Cell Distribution Width 12.8 Platelet Count 159 Mean Platelet Volume 10.0 Neutrophils (%) (Auto) 72.9 Lymphocytes (%) (Auto) 13.3 Monocytes (%) (Auto) 11.0 Eosinophils (%) (Auto) 1.8 Basophils (%) (Auto) 1.0 Neutrophils # (Auto) 11.6 Lymphocytes # (Auto) 2.1 Monocytes # (Auto) 1.7 Eosinophils # (Auto) 0.3 Basophils # (Auto) 0.2 CBC Comment DIFF FINAL Differential Comment Prothrombin Time 11.3 Prothromb Time International Ratio 1.0 Activated Partial Thromboplast Time 28.5 Blood Urea Nitrogen 7 Creatinine 0.76 Random Glucose 389 Total Protein 7.1 Albumin 3.1 Calcium Level 8.8 Alkaline Phosphatase 107 Aspartate Amino Transf (AST/SGOT) 28 Alanine Aminotransferase (ALT/SGPT) 50 Total Bilirubin 0.7 Sodium Level 136 Potassium Level 3.4 Chloride Level 102 Carbon Dioxide Level 25.9 Anion Gap 8 Estimat Glomerular Filtration Rate 112 Date/Time Source Procedure Growth Status 01/23/17 04:29 Blood Peripheral Aerobic Blood Culture Pending Received 01/23/17 04:29 Blood Peripheral Anaerobic Blood Culture Pending Received Result Diagram: 01/23/17 0506 01/23/17 0506 Caprini VTE Risk Assessment Caprini VTE Risk Assessment: No/Low Risk (score <= 1) VTE Pharm Contraindication: Postop bleeding (patient to have surgery later today) Birdrini Risk Assessment Model Point Value = 1 Point Value = 2 Point Value = 3 Point Value = 5 Age 41-60 Minor surgery BMI > 25 kg/m2 Swollen legs Varicose veins or History of unexplained or recurrent spontaneous Oral contraceptives or hormone replacement Sepsis (< 1 month) Serious lung disease, including pneumonia (< 1 month) Abnormal pulmonary function Acute myocardial infarction Congestive heart failure (< 1 month) History of inflammatory bowel disease Medical patient at bed rest Age 61-74 Arthroscopic surgery Major open surgery (> 45 min) Laparoscopic surgery (> 45 min) Malignancy Confined to bed (> 72 hours) Immobilizing plaster cast Central venous access Age >= 75 History of VTE Family history of VTE Factor V Leiden Prothrombin [id number] Lupus anticoagulant Anticardiolipin antibodies Elevated serum homocysteine Heparin-induced thrombocytopenia Other congenital or acquired thrombophilia Stroke (< 1 month) Elective arthroplasty Hip, pelvis, or leg fracture Acute spinal cord injury (< 1 month) Prophylaxis Regimen Total Risk Factor Score Risk Level Prophylaxis Regimen 0-1 Low Early ambulation 2 Moderate Order ONE of the following: *Sequential Compression Device (SCD) *Heparin 5000 units SQ BID 3-4 Higher Order ONE of the following medications: *Heparin 5000 units SQ TID *Enoxaparin/Lovenox 40 mg SQ daily (WT < 150 kg, CrCl > 30 mL/min) *Enoxaparin/Lovenox 30 mg SQ daily (WT < 150 kg, CrCl > 10-29 mL/min) *Enoxaparin/Lovenox 30 mg SQ BID (WT < 150 kg, CrCl > 30 mL/min) AND/OR *Sequential Compression Device (SCD) 5 or more Highest Order ONE of the following medications: *Heparin 5000 units SQ TID (Preferred with Epidurals) *Enoxaparin/Lovenox 40 mg SQ daily (WT < 150 kg, CrCl > 30 mL/min) *Enoxaparin/Lovenox 30 mg SQ daily (WT < 150 kg, CrCl > 10-29 mL/min) *Enoxaparin/Lovenox 30 mg SQ BID (WT < 150 kg, CrCl > 30 mL/min) AND *Sequential Compression Device (SCD) Assessment and Plan Assessment and Plan 41-year-old male with a past medical history significant for recurrent perianal abscesses who presents to [facility] ED with complaints of pain and swelling in the perineal and scrotal area for the past 4 days that that began draining a large amount of pus and blood earlier this morning. Sepsis with elevated white count 15.9, pulse 99 and source of recurrent perineal abscess - Patient given vancomycin and Zosyn in the ED. Continue on vancomycin and Zosyn IV and add ciprofloxacin IV. - IV fluids - Consult colorectal surgery, Dr. Rodriguez - Keep NPO for now - Obtain CT of abdomen and pelvis to rule out Lakisha's gangrene - Pain management - Follow up on blood culture results Hypokalemia - Monitor - Repletion ordered. - Obtain BMP in a.m. to monitor response Hyperglycemia - Patient denies history of diabetes. Possibly due to infectious process. - Obtain hemoglobin A1c - Accu-Cheks. Insulin sliding scale. Macrocytosis - Likely due to alcohol consumption DVT prophylaxis - Bilateral SCD/NANDINI hose - Chemoprophylaxis contraindicated at this time due to upcoming surgical intervention This note was transcribed by lanie Singh. I, Dr. Adis Thomas personally performed the history, physical exam, and medical decision making; and confirmed the accuracy of the information in the transcribed note. Authenticated by Dr. Adis Thomas on 01/23/17 at 13:04. Discussed Condition With Patient, nursing staff Physician Certification 2 Midnight Certification Type: Admission for Inpatient Services Order for Inpatient Services The services are ordered in accordance with Medicare regulations or non- Medicare payer requirements, as applicable. In the case of services not specified as inpatient-only, they are appropriately provided as inpatient services in accordance with the 2-midnight benchmark. Estimated LOS (days): 3 3 days is the estimated time the patient will need to remain in the hospital, assuming treatment plan goals are met and no additional complications. Post-Hospital Plan: Not yet determined Holley Singh Jan 23, 2017 12:14 Adis Thomas MD Jan 23, 2017 13:04
--- NOTE | 2017-01-23 12:17 | RADRPT ---
EXAM DATE/TIME: 01/23/2017 11:39 [place] COMPARISON: CT ABDOMEN & PELVIS W CONTRAST, March 29, 2016, 16:29. INDICATIONS : Perineal abscess IV CONTRAST: 80 cc Omnipaque 350 (iohexol) IV ORAL CONTRAST: No oral contrast ingested. RADIATION DOSE: 20.20 CTDIvol (mGy) MEDICAL HISTORY : perineal abscess x3 SURGICAL HISTORY : Appendectomy. ENCOUNTER: Initial ACUITY: 1 day PAIN SCALE: 5/10 LOCATION: perineum TECHNIQUE: Volumetric scanning of the abdomen and pelvis was performed. Using automated exposure control and ad justment of the mA and/or kV according to patient size, radiation dose was kept as low as reasonably achievable to obtain optimal diagnostic quality images. DICOM format image data is available electro nically for review and comparison. FINDINGS: LOWER LUNGS: The visualized lower lungs are clear. LIVER: Homogeneous density without lesion. There is no dilation of the biliary tree. No calcified gallston es. SPLEEN: Normal size without lesion. PANCREAS: Within normal limits. KIDNEYS: Normal in size and shape. There is no mass, stone or hydronephrosis. ADRENAL GLANDS: Within normal limits. VASCULAR: There is no aortic aneurysm. Flexor premature atherosclerotic vascular calcifications in the distal c ommon aorta and common iliac arteries BOWEL/MESENTERY: The stomach, small bowel, and colon demonstrate no acute abnormality. There is no free intraperitone al air or fluid. ABDOMINAL WALL: Within normal limits. RETROPERITONEUM: There is no lymphadenopathy. BLADDER: No wall thickening or mass. REPRODUCTIVE: Within normal limits. INGUINAL: There is no lymphadenopathy or hernia. MUSCULOSKELETAL: Within normal limits for patient age. Perineum. There is some inflammatory change anterior to the anal regio n in the peritoneum which extends toward the base of the scrotum without abscess formation with a torey ewhat linear metallic tubular abnormality in place. CONCLUSION: In the perineal region some inflammatory change extends from the amorphous anterior toward the base o f the scrotum with a somewhat linear tubular or metallic abnormality within this. No evidence of absc ess or fluid collection. Inflammatory changes toward the base of the scrotum are increased relative t o prior exam Agustin Avalos MD on January 23, 2017 at 12:11 Board Certified Radiologist. This report was verified electronically.
[2017-01-23] MEDS: PIPERACIL-TAZO 4.5 GM PREMIX 100 ML IV SCH ×3 (13:42→20:26)
[2017-01-23 15:41] LABS: HEMOGLOBIN A1a 1.2 %; HEMOGLOBIN Ao 76.5 %; HEMOGLOBIN F 1.9 %; HEMOGLOBIN LA1C 4.1 %; HEMOGLOBIN P3 5.4 %
[2017-01-23] MEDS ORDERED: HYDROmorphone HCL PF 2 MG/ML VIAL ONE (18:23)
[2017-01-23] MEDS ORDERED: DO NOT ADM ANY ANTICOAGULANT DRUGS PRN (18:52)
[2017-01-23] MEDS ORDERED: MORPHINE SULFATE 4 MG/ML INJ IV PUSH PRN (19:00)
[2017-01-23] MEDS ORDERED: *morphine SULFATE 8 MG/ML PERIprocedure ONLY ONE (19:37)
[2017-01-23] MEDS ORDERED: *LABETALOL HCL 100 MG/20 ML VIAL PERIprocedural Use ONLY ONE (19:43)
[2017-01-23] MEDS: VANCOMYCIN INJ 1,250 MG in SODIUM CHLOR 0.9% 250 ML INJ 250 ML IV SCH (22:07)
[2017-01-23] MEDS: oxyCODONE/ACETAMINOPHEN 10 MG/325 MG TAB PO PRN (22:11)
[2017-01-24] VITALS (9 sets, daily range): BP systolic 150–188; BP diastolic 89–107; PULSE 63–77; RESP 16–20; TEMP 95.7–97.6; O2SAT 94–98
[2017-01-24] MEDS: PIPERACIL-TAZO 4.5 GM PREMIX 100 ML IV SCH ×4 (01:46→20:09)
[2017-01-24] MEDS: VANCOMYCIN INJ 1,250 MG in SODIUM CHLOR 0.9% 250 ML INJ 250 ML IV SCH ×2 (03:59→14:21)
[2017-01-24] MEDS ORDERED: cloNIDine HCL 0.1 MG TAB PO ONE (06:00)
[2017-01-24] MEDS: oxyCODONE/ACETAMINOPHEN 10 MG/325 MG TAB PO PRN ×2 (06:05→13:27)
[2017-01-24] MEDS: CIPROFLOXACIN 400 MG PREMIX 200 ML IV SCH ×2 (07:10→18:05)
[2017-01-24 07:41] LABS: AUTOMATED NEUTROPHIL # 10.9 TH/MM3 (1.8-7.7); BASOPHIL # 0.1 TH/MM3 (0-0.2); BASOPHIL % 0.5 % (0.0-2.0); EOSINOPHIL # 0.4 TH/MM3 (0-0.4); EOSINOPHIL % 2.4 % (0.0-4.0); HEMATOCRIT 39.5 % (39.0-51.0); HEMO FLAGS DIFF FINAL; LYMPH % 12.9 % (9.0-44.0); LYMPHOCYTE # 1.9 TH/MM3 (1.0-4.8); MEAN CELL VOLUME 105.4 FL (80.0-100.0); MEAN CORPUSCULAR HEMOGLOBIN 35.8 PG (27.0-34.0); MONO % 11.1 % (0.0-8.0); NEUT % 73.1 % (16.0-70.0); PLATELET COUNT 161 TH/MM3 (150-450); RED BLOOD COUNT 3.75 MIL/MM3 (4.50-5.90); WHITE BLOOD COUNT 14.9 TH/MM3 (4.0-11.0)
[2017-01-24] MEDS: INSULIN ASPART SUPPLEMENTAL SCALE SQ SCH ×4 (08:03→20:10)
[2017-01-24] MEDS: SODIUM CHLORIDE 0.9% FLUSH 10 ML FLUSH IV FLUSH SCH ×2 (08:07→20:09)
[2017-01-24] MEDS: SODIUM CHLOR 0.9% 1000 ML INJ 1,000 ML IV SCH ×2 (08:07→15:55)
[2017-01-24 08:43] LABS: POTASSIUM 3.4 MEQ/L (3.5-5.1)
[2017-01-24 08:44] LABS: BICARBONATE 24.7 MEQ/L (21.0-32.0)
[2017-01-24] MEDS ORDERED: INFLUENZA VIRUS VACCINE (QUADRIVALENT) 0.5 ML SYR IM ONE (10:00)
--- NOTE | 2017-01-24 16:20 | HHI.PR ---
Subjective Remarks Written by Holley Singh, acting as scribe for Dr. Thomas on 01/24/17 at 16:12. Follow-up on patient with recurrent perineal abscess. Patient seen and examined. Patient status post I&D earlier today by Dr. Rodriguez. Patient sleeping upon entering the room. Awakens easily to voice. Appears comfortable. States his pain is under control presently. Reports feeling "little weird: after being given insulin. Blood sugar currently in the high 200s. Also discussed with patient need to begin hypertensive medication for elevated blood pressure. Patient denies any history of hypertension. Discussed with nursing staff, patient cleared for discharge by Dr. Rodriguez. Objective Vitals Vital Signs Date Time Temp Pulse Resp B/P (MAP) Pulse Ox O2 Delivery O2 Flow Rate FiO2 01/24/17 14:20 94 21 01/24/17 12:00 96.9 65 18 173/98 (123) 97 01/24/17 11:30 96.6 65 18 173/98 (123) 97 01/24/17 08:00 97.6 76 20 188/107 (134) 96 01/24/17 07:35 97.6 76 16 188/107 (134) 96 01/24/17 04:00 96.1 77 17 171/89 (116) 98 01/24/17 00:00 97.6 73 17 173/93 (119) 98 01/23/17 20:00 98.2 75 16 160/97 (118) 95 Room Air 01/23/17 20:00 96.2 75 17 186/99 (128) 97 01/23/17 19:45 86 16 171/95 (120) 98 Room Air 01/23/17 19:30 81 16 196/107 (136) 96 Room Air 01/23/17 19:15 85 15 173/93 (119) 93 Room Air 01/23/17 19:00 88 15 165/87 (113) 94 Room Air 01/23/17 18:54 99.0 93 14 127/73 (91) 92 Simple Mask 6 I/O 01/23/17 01/23/17 01/23/17 01/24/17 01/24/17 01/24/17 06:59 14:59 22:59 06:59 14:59 22:59 Intake Total 300 ml 1000 ml 1140 ml 400 ml Output Total 375 ml 175 ml 550 ml 325 ml Balance 300 ml -375 ml 825 ml 590 ml 75 ml Intake Oral 240 ml IV Total 300 ml 900 ml 400 ml Other 1000 ml Output Urine Total 375 ml 100 ml 550 ml 325 ml Estimated Blood Loss 75 ml # Voids 1 2 Result Diagram: 01/24/17 0711 01/24/17 0711 Imaging Last Impressions Abdomen/Pelvis CT 01/23/17 0000 Signed Impressions: Service Date/Time: January 11:39 - CONCLUSION: In the perineal region some inflammatory change extends from the amorphous anterior toward the base of the scrotum with a somewhat linear tubular or metallic abnormality within this. No evidence of abscess or fluid collection. Inflammatory changes toward the base of the scrotum are increased relative to prior exam Agustin Avalos MD Objective Remarks GENERAL: This is a well-nourished, well-developed patient, in no apparent distress. Lying in hospital bed. Appears comfortable present. SKIN: Warm and dry. Multiple tattoos noted. HEAD: Atraumatic. Normocephalic. EYES: Extraocular motions intact. No scleral icterus. No injection or drainage. ENT: Nose without bleeding, purulent drainage. Airway patent. MMM. NECK: Trachea midline. CARDIOVASCULAR: Regular rate and rhythm without murmurs, gallops, or rubs. RESPIRATORY: Clear to auscultation. Breath sounds equal bilaterally. No wheezes , rales, or rhonchi. GASTROINTESTINAL: Abdomen soft, nondistended. Positive for mild tenderness to palpation diffusely. No hepato-splenomegaly, or palpable masses. No guarding. GENITOURINARY: Status post I&D of perineal abscess. Did not examine. MUSCULOSKELETAL: Extremities without clubbing, cyanosis, or edema. NEUROLOGICAL: Awake and alert. Able to move all extremities spontaneously. Normal speech. Medications and IVs Current Medications Medications (Trade) Dose Ordered Sig/Harris Route Start Time Stop Time Status Last Admin Sodium Chloride 1,000 ml @ 125 mls/hr Q8H IV 01/23/17 04:30 01/24/17 15:55 (NS Flush) 2 ml UNSCH PRN IV FLUSH 01/23/17 06:30 (NS Flush) 2 ml BID IV FLUSH 01/23/17 09:00 01/23/17 11:16 (Narcan Inj) 0.4 mg UNSCH PRN IV PUSH 01/23/17 06:30 Ciprofloxacin/ Dextrose 200 ml @ 200 mls/hr Q12H IV 01/23/17 07:00 01/24/17 07:10 (D50w (Vial) Inj) 50 ml UNSCH PRN IV PUSH 01/23/17 10:30 (Glucagon Inj) 1 mg UNSCH PRN OTHER 01/23/17 10:30 (NovoLOG SUPPLEMENTAL SCALE) 1 ACHS SLIDING SCALE SQ 01/23/17 12:00 01/24/17 13:05 Vancomycin HCl 1250 mg/Sodium Chloride 262.5 ml @ 250 mls/hr Q8H IV 01/23/17 21:00 01/24/17 14:21 Miscellaneous Information SPECIFIC LAB TO BE GABBY... ONCE ONCE .XX 01/25/17 04:45 01/25/17 04:46 (Percocet 10-325 Mg) 2 tab Q6H PRN PO 01/23/17 19:00 01/24/17 13:27 (Morphine Inj) 4 mg Q3H PRN IV PUSH 01/23/17 19:00 Miscellaneous Information ALL NURSING DEPARTME... UNSCH PRN .XX 01/23/17 18:52 01/24/17 18:51 Piperacillin Sod/ Tazobactam Sod 100 ml @ 200 mls/hr Q6H IV 01/23/17 20:00 01/24/17 13:36 Urinary Catheter: No Vascular Central Line Catheter: No A/P Assessment and Plan 41-year-old male with a past medical history significant for recurrent perianal abscesses who presents to [facility] ED with complaints of pain and swelling in the perineal and scrotal area for the past 4 days that that began draining a large amount of pus and blood earlier this morning. Sepsis with elevated white count 15.9, pulse 99 and source of recurrent perineal abscess - Continue on Vancomycin, Zosyn and Ciprofloxacin IV - White count trending down. Repeat CBC in a.m. - continue IV fluids - s/p I&D by Dr. Rodriguez - CT of abdomen and pelvis obtained and personally reviewed showing inflammatory changes - Continue pain management - Blood cultures show no growth 1 day Hypertension - Begin lisinopril 5 mg daily - Monitor BP Hypokalemia - mild - replete and am labs to monitor response Diabetes, newly diagnosed - Hemoglobin A1c 9.7 - Discussed findings with patient. Diabetic teaching. Patiently to follow- up with PCP in 3 months to repeat hemoglobin A1c. - continue Accu-Cheks. Insulin sliding scale. - Begin metformin 500 mg twice a day - Changed to diabetic heart healthy diet Macrocytosis - Likely due to alcohol consumption DVT prophylaxis - Bilateral SCD/NANDINI hose Discussed with patient and nursing staff This note was transcribed by lanie Singh. I, Dr. Adis Thomas personally performed the history, physical exam, and medical decision making; and confirmed the accuracy of the information in the transcribed note. Authenticated by Dr. Adis Thomas on 01/24/17 at 16:31. Holley Singh Jan 24, 2017 16:20 Adis Thomas MD Jan 24, 2017 16:33
--- NOTE | 2017-01-24 17:26 | HHI.PR ---
Subjective Remarks C/R Surg POD #1 afebrile, VSS UO good Objective - Vital Signs Date Time Temp Pulse Resp B/P (MAP) Pulse Ox O2 Delivery O2 Flow Rate FiO2 01/24/17 16:00 95.7 63 18 150/89 (109) 97 01/24/17 14:20 21 01/23/17 20:00 Room Air 01/23/17 18:54 6 Result Diagram: 01/24/17 0711 01/24/17 0711 Objective Remarks PE alert Abd - soft, min tympany Rectal - wounds clean, dry, min disch A/P Assessment and Plan Imp: stable post-op OOB wet to dry dressings, DC plans for wound care control Luis Ham MD Jan 24, 2017 17:26
[2017-01-24] MEDS ORDERED: POTASSIUM CHLORIDE 10 MEQ CONTROLLED RELEASE TAB PO ONE (17:30)
--- NOTE | 2017-01-24 18:03 | MB ---
cc: MANUEL YODER MD DATE OF CONSULTATION 01/23/17 REASON FOR CONSULTATION Recurrent rectal abscess. HISTORY OF PRESENT ILLNESS Mr. Choudhary is a 41-year-old male who had anterior rectal abscess drained with a Seton placed several months ago. He was supposed to come back to the office for followup and eventual Seton removal. Unfortunately, he never returned for followup and did well with the Seton noting additional swelling and pain over the perineum and scrotum for last four days. He came to the emergency room for evaluation and was referred back to the office, however, despite antibiotics and warm soaks the swelling and discomfort have increased and he came back to the emergency room for additional evaluation. He did note quite a bit of drainage from the abscess while in the emergency room. Denies any fever or chills. Bowel movements have been fairly regular. Denies any significant diarrhea. No nausea, vomiting or abdominal distension. The patient was evaluated in the emergency room and found to have the Seton in place with a fairly significant abscess along the perineal body. It had spontaneously drained but was inadequate drainage with quite a bit of cellulitis present. The patient was admitted for additional blood sugar control and incision and drainage of the abscess with probable Seton removal. Please see the admitting history and physical for more complete past medical and surgical history. PERTINENT PHYSICAL A very pleasant heavy-set male in some discomfort. Abdomen was very soft and benign, very little distension. No rebound or guarding or any masses noted. Anal inspection revealed the Seton in place anteriorly with a lot of cellulitis and a large swelling indurated area along the perineal body extending up to the base of the scrotum. Quite a bit of purulent fluid was coming out of an opening in the midline. No signs of necrosis or ischemia. Testicles were palpated and felt to be pretty normal. IMPRESSION A 41-year-old male with recurrent perineal infection even with a Seton in place. The patient will be admitted for blood sugar control, EUA and definitive drainage of the abscess with probable fistulotomy and removal of the Seton. Risk, benefits, and alternatives were discussed at great length with the patient and we will set up the surgery later this afternoon when OR time becomes available. MD DAYSI Dubon/ /5:27 PM /5:51 PM
[2017-01-24] MEDS: LISINOPRIL 5 MG TAB PO SCH (18:04)
[2017-01-24] MEDS: ONDANSETRON HCL 4 MG/2 ML VIAL IV PUSH PRN (18:22)
--- NOTE | 2017-01-24 18:33 | MP ---
cc: MANUEL YODER M.D. DATE OF SURGERY: 01/23/2017. 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 OPERATIVE PROCEDURE PERFORMED: Exam under anesthesia with fistulotomy and drainage of large anterior perineal abscess. SURGEON: Manuel Yoder MD. DESCRIPTION OF THE PROCEDURE IN DETAIL: The patient was placed in the supine position. After adequate general anesthesia, he was turned and placed in the prone jackknife position. His buttocks were taped apart, prepped with Betadine solution and draped in the usual sterile fashion. Initial inspection revealed the seton to be in place with a large indurated abscess extending from the midline anteriorly along the perineal body toward the base of the scrotum. Opening was present and a finger inserted identifying a large cavity along the perineal body. This was opened along the midline extending up to the scrotal sac. Additional purulent fluid was removed. It appeared to end just about the level of the seton so the fistulotomy was completed in the seton removed. Granulation tissue was taken from the bottom of the tract and hemostasis was achieved with electrocautery. The tract and cavity were then irrigated copiously with normal saline. Adequate hemostasis achieved. A large Kerlix dressing was positioned in the wound and a large fluff dressing placed externally. The patient tolerated the procedure quite well and was brought to the recovery room in stable condition. The sponge and needle counts were correct at the end of the procedure. MD DAYSI Dubon/COLLETTE /5:31 PM /6:19 PM
[2017-01-25] VITALS: BP 137/80; PULSE 68; RESP 17; TEMP 97; O2SAT 97
[2017-01-25] MEDS: PIPERACIL-TAZO 4.5 GM PREMIX 100 ML IV SCH ×3 (01:58→15:18)
[2017-01-25] MEDS ORDERED: PHARMACY ORDERED LAB ONE (04:45)
[2017-01-25] MEDS: CIPROFLOXACIN 400 MG PREMIX 200 ML IV SCH (05:53)
[2017-01-25 08:00] VITALS: BP 183/108; PULSE 70; RESP 18; TEMP 96.8; O2SAT 95
[2017-01-25 09:00] LABS: BASOPHIL % 0.4 % (0.0-2.0); EOSINOPHIL # 0.2 TH/MM3 (0-0.4); EOSINOPHIL % 1.9 % (0.0-4.0); HEMATOCRIT 36.7 % (39.0-51.0); HEMO FLAGS DIFF FINAL; LYMPH % 11.8 % (9.0-44.0); LYMPHOCYTE # 1.4 TH/MM3 (1.0-4.8); MEAN CELL VOLUME 105.4 FL (80.0-100.0); MEAN CORPUSCULAR HEMOGLOBIN 35.7 PG (27.0-34.0); MEAN CORPUSCULAR HGB CONC 33.9 % (32.0-36.0); MONO % 11.6 % (0.0-8.0); NEUT % 74.3 % (16.0-70.0); PLATELET COUNT 155 TH/MM3 (150-450); RED BLOOD COUNT 3.48 MIL/MM3 (4.50-5.90); WHITE BLOOD COUNT 12.1 TH/MM3 (4.0-11.0)
[2017-01-25] MEDS: LISINOPRIL 5 MG TAB PO SCH (09:00)
[2017-01-25] MEDS: INSULIN ASPART SUPPLEMENTAL SCALE SQ SCH ×4 (09:21→20:34)
[2017-01-25 09:28] VITALS: O2SAT 98
[2017-01-25] MEDS ORDERED: POLYETHYLENE GLYCOL 17 GM PKG PO ONE (09:30)
[2017-01-25] MEDS ORDERED: ACETAMINOPHEN 325 MG TAB PO PRN (09:30)
[2017-01-25] MEDS ORDERED: DOCUSATE SODIUM 50 MG/SENNA 8.6 MG TAB PO ONE (09:30)
[2017-01-25 09:44] LABS: BICARBONATE 22.5 MEQ/L (21.0-32.0); POTASSIUM 3.5 MEQ/L (3.5-5.1)
--- NOTE | 2017-01-25 10:28 | HHI.PR ---
Subjective Remarks Follow-up on patient with recurrent perineal abscess. Patient seen and examined. Patient pod #2. Patient complains of nausea and vomiting with Percocet. Patient has not had any pain medication since 1:30 yesterday. He denies any nausea or vomiting today. States his pain level is 4/10 presently. He denies any fever or chills. Denies any chest pain or shortness of breath. He states he feels bloated and complains of soreness in his belly. He has not had a bowel movement since Friday. States he is passing gas. Urinating without any difficulties. Objective Vitals Vital Signs Date Time Temp Pulse Resp B/P (MAP) Pulse Ox O2 Delivery O2 Flow Rate FiO2 01/25/17 08:00 96.8 70 18 183/108 (133) 95 01/25/17 00:00 97.0 68 17 137/80 (99) 97 01/24/17 20:00 97.4 71 17 158/97 (117) 96 01/24/17 16:00 95.7 63 18 150/89 (109) 97 01/24/17 14:20 94 21 01/24/17 12:00 96.9 65 18 173/98 (123) 97 01/24/17 11:30 96.6 65 18 173/98 (123) 97 I/O 01/24/17 01/24/17 01/24/17 01/25/17 01/25/17 01/25/17 07:00 15:00 23:00 07:00 15:00 23:00 Intake Total 1140 ml 400 ml 600 ml 340 ml 200 ml Output Total 550 ml 325 ml Balance 590 ml 75 ml 600 ml 340 ml 200 ml Intake Oral 240 ml 300 ml 240 ml IV Total 900 ml 400 ml 300 ml 100 ml 200 ml Output Urine Total 550 ml 325 ml # Voids 2 2 # Bowel Movements 0 Result Diagram: 01/25/17 0707 01/25/17 0707 Imaging Last Impressions Abdomen/Pelvis CT 01/23/17 0000 Signed Impressions: Service Date/Time: January 11:39 - CONCLUSION: In the perineal region some inflammatory change extends from the amorphous anterior toward the base of the scrotum with a somewhat linear tubular or metallic abnormality within this. No evidence of abscess or fluid collection. Inflammatory changes toward the base of the scrotum are increased relative to prior exam Agustin Avalos MD Objective Remarks GENERAL: This is a well-nourished, well-developed patient, in no apparent distress. Lying in hospital bed. Awake and alert. Appears comfortable. SKIN: Warm and dry. Multiple tattoos noted. HEAD: Atraumatic. Normocephalic. EYES: Extraocular motions intact. No scleral icterus. No injection or drainage. ENT: Nose without bleeding, purulent drainage. Airway patent. MMM. NECK: Trachea midline. CARDIOVASCULAR: Regular rate and rhythm without murmurs, gallops, or rubs. RESPIRATORY: Clear to auscultation. Breath sounds equal bilaterally. No wheezes , rales, or rhonchi. GASTROINTESTINAL: Abdomen soft, distended. Positive for mild tenderness to palpation diffusely. No hepato-splenomegaly, or palpable masses. No guarding. GENITOURINARY: Status post I&D of perineal abscess. Did not examine. MUSCULOSKELETAL: Extremities without clubbing, cyanosis, or edema. NEUROLOGICAL: Awake and alert. Able to move all extremities spontaneously. Normal speech. Procedures 01/23/17 Exam under anesthesia with fistulotomy and drainage of large anterior perineal abscess performed by Dr. Rodriguez. Medications and IVs Current Medications Medications (Trade) Dose Ordered Sig/Harris Route Start Time Stop Time Status Last Admin (NS Flush) 2 ml UNSCH PRN IV FLUSH 01/23/17 06:30 (NS Flush) 2 ml BID IV FLUSH 01/23/17 09:00 01/23/17 11:16 (Narcan Inj) 0.4 mg UNSCH PRN IV PUSH 01/23/17 06:30 Ciprofloxacin/ Dextrose 200 ml @ 200 mls/hr Q12H IV 01/23/17 07:00 01/25/17 15:00 01/25/17 05:53 (D50w (Vial) Inj) 50 ml UNSCH PRN IV PUSH 01/23/17 10:30 (Glucagon Inj) 1 mg UNSCH PRN OTHER 01/23/17 10:30 (NovoLOG SUPPLEMENTAL SCALE) 1 ACHS SLIDING SCALE SQ 01/23/17 12:00 01/25/17 09:21 (Morphine Inj) 4 mg Q3H PRN IV PUSH 01/23/17 19:00 Piperacillin Sod/ Tazobactam Sod 100 ml @ 200 mls/hr Q6H IV 01/23/17 20:00 01/25/17 15:00 01/25/17 09:21 (Glucophage) 500 mg BIDPC PO 01/25/17 12:00 (Prinivil) 5 mg DAILY PO 01/24/17 17:30 01/25/17 09:00 (Zofran Inj) 4 mg Q8HR PRN IV PUSH 01/24/17 17:45 01/24/17 18:22 ([place] 5-325 Mg) 1 tab Q6H PRN PO 01/25/17 09:30 (Tylenol) 650 mg Q4H PRN PO 01/25/17 09:30 (Erin-Colace) 1 tab BID PO 01/25/17 21:00 A/P Assessment and Plan 41-year-old male with a past medical history significant for recurrent perianal abscesses who presents to [facility] ED with complaints of pain and swelling in the perineal and scrotal area for the past 4 days that that began draining a large amount of pus and blood earlier this morning. Sepsis with elevated white count 15.9, pulse 99 and source of recurrent perineal abscess - s/p exam under anesthesia with fistulotomy and drainage of large anterior perineal abscess 01/23/[address] Rodriguez. Wet to dry dressing changes. - Continue IV Zosyn and Ciprofloxacin. Discontinue Vancomycin due to worsening renal fxn. - White count trending down, 15.9 --> 12.1 - continue IV fluids - CT of abdomen and pelvis obtained and personally reviewed showing inflammatory changes - Continue pain management. Discontinue Percocet due to GI intolerance. Trial Hydrocodone 5/325mg prn pain. - Blood cultures show no growth 1 day CLAUDIA - Likely due to recent contrast, ?vancomycin. - Discontinue vancomycin. Renally dose medications. - Avoid nephrotoxic agents - IV fluids - Strict I&Os - Obtain UA - repeat BMP in am Hypertension - Initially better control but with elevated BP measurement 183/108. ?pain related. - Continue lisinopril 5 mg daily - Clonidine 0.1 mg when necessary with parameters - Monitor BP and adjust treatment accordingly. Hypokalemia - resolved s/p repletion Diabetes, newly diagnosed - Hemoglobin A1c 9.7 - Discussed findings with patient. Diabetic teaching. Patiently to follow- up with PCP in 3 months to repeat hemoglobin A1c. - continue Accu-Cheks. Insulin sliding scale. - Unable to start metformin 500 mg twice a day due to recent contrast for CT. BS in mid 200s. Begin Levemir 5u daily. - Continue diabetic heart healthy diet Macrocytosis - Likely due to alcohol consumption Constipation - advised on OOB - Erin-Colace by mouth twice a day - MiraLAX now - Monitor for BM DVT prophylaxis - Bilateral SCD/NANDINI hose Discussed with patient, nursing staff and Dr. Thomas Discharge Planning Pending improvement in renal function Holley Singh Jan 25, 2017 10:28
[2017-01-25] MEDS ORDERED: cloNIDine HCL 0.1 MG TAB PO PRN (10:30)
[2017-01-25 11:16] LABS: CALCIUM-PROTEIN CORRECTED 8.6 MG/DL (8.5-10.1)
[2017-01-25 12:00] VITALS: BP 173/96; PULSE 67; RESP 18; TEMP 97.1; O2SAT 98
[2017-01-25] MEDS ORDERED: metFORMIN HCL 500 MG TAB PO SCH (12:00)
[2017-01-25] MEDS: INSULIN DETEMIR 100 UNITS/ML VIAL SQ SCH (12:45)
[2017-01-25] MEDS: ACETAMINOPHEN/HYDROcodone 325 MG/5 MG TAB PO PRN ×2 (12:47→20:35)
[2017-01-25] MEDS: SODIUM CHLORIDE 0.9% FLUSH 10 ML FLUSH IV FLUSH SCH ×2 (12:52→20:30)
[2017-01-25 13:09] LABS: BACTERIA, URINE OCC /hpf; BLOOD, URINE NEG (NEG); COMMENT (UR) CULT NOT INDICATED; CULTURE IF INDICATED CULT NOT INDICATED; GLUCOSE,URINE TRACE mg/dL (NEG); KETONE, URINE NEG (NEG); NITRITE,URINE NEG (NEG); URINE COLOR YELLOW (YELLW/STRAW)
[2017-01-25 16:00] VITALS: BP 171/95; PULSE 68; RESP 18; TEMP 96.7; O2SAT 95
[2017-01-25] MEDS: SODIUM CHLOR 0.9% 1000 ML INJ 1,000 ML IV SCH ×2 (16:47→20:16)
[2017-01-25 20:00] VITALS: BP 165/90; PULSE 72; RESP 20; TEMP 97.7; O2SAT 95
[2017-01-25] MEDS: DOCUSATE SODIUM 50 MG/SENNA 8.6 MG TAB PO SCH (20:33)
[2017-01-25] MEDS: ONDANSETRON HCL 4 MG/2 ML VIAL IV PUSH PRN (20:35)
[2017-01-26] VITALS: BP 176/104; PULSE 72; RESP 18; TEMP 97.3; O2SAT 95
[2017-01-26 01:48] VITALS: BP 170/91
[2017-01-26] MEDS: SODIUM CHLOR 0.9% 1000 ML INJ 1,000 ML IV SCH ×2 (02:55→13:04)
[2017-01-26 05:53] LABS: AUTOMATED NEUTROPHIL # 9.3 TH/MM3 (1.8-7.7); BASOPHIL # 0.1 TH/MM3 (0-0.2); BASOPHIL % 0.6 % (0.0-2.0); EOSINOPHIL # 0.3 TH/MM3 (0-0.4); EOSINOPHIL % 1.9 % (0.0-4.0); HEMATOCRIT 37.2 % (39.0-51.0); HEMO FLAGS DIFF FINAL; LYMPH % 13.7 % (9.0-44.0); LYMPHOCYTE # 1.8 TH/MM3 (1.0-4.8); MEAN CELL VOLUME 105.1 FL (80.0-100.0); MEAN CORPUSCULAR HEMOGLOBIN 35.7 PG (27.0-34.0); MONO % 13.1 % (0.0-8.0); NEUT % 70.7 % (16.0-70.0); PLATELET COUNT 179 TH/MM3 (150-450); RED BLOOD COUNT 3.54 MIL/MM3 (4.50-5.90); RED CELL DISTRIBUTION WIDTH 12.8 % (11.6-17.2); WHITE BLOOD COUNT 13.1 TH/MM3 (4.0-11.0)
[2017-01-26 06:18] LABS: BICARBONATE 22.5 MEQ/L (21.0-32.0); POTASSIUM 3.4 MEQ/L (3.5-5.1)
[2017-01-26] MEDS ORDERED: POTASSIUM CHLORIDE 10 MEQ CONTROLLED RELEASE TAB PO ONE (07:45)
[2017-01-26 08:00] VITALS: BP 175/99; PULSE 76; RESP 18; TEMP 96; O2SAT 95
[2017-01-26] MEDS ORDERED: hydrALAZINE HCL 25 MG TAB PO ONE (08:00)
[2017-01-26] MEDS: INSULIN ASPART SUPPLEMENTAL SCALE SQ SCH ×4 (08:00→21:00)
[2017-01-26] MEDS: INSULIN DETEMIR 100 UNITS/ML VIAL SQ SCH (08:29)
[2017-01-26] MEDS: amLODIPine BESYLATE 5 MG TAB PO SCH (08:37)
[2017-01-26] MEDS: ONDANSETRON HCL 4 MG/2 ML VIAL IV PUSH PRN (08:39)
[2017-01-26] MEDS: DOCUSATE SODIUM 50 MG/SENNA 8.6 MG TAB PO SCH ×2 (09:00→21:39)
[2017-01-26] MEDS: SODIUM CHLORIDE 0.9% FLUSH 10 ML FLUSH IV FLUSH SCH ×2 (09:00→21:39)
--- NOTE | 2017-01-26 10:54 | HHI.PR ---
Subjective Remarks Follow-up on patient with recurrent perineal abscess. Patient seen and examined. Patient pod #3. Patient encountered sleeping soundly in room, snoring. Discussed with patient possibility of sleep apnea. Patient states his whole family has it but he has never been tested. Patient states he feels well. Positive bowel movement yesterday. Abdominal bloating and tenderness improved. Denies any dysuria with urination but states he has been urinating less. Denies any chest pain or shortness of breath. Reports an episode of vomiting last night. Denies any nausea or vomiting today. He denies any fever or chills. Objective Vitals Vital Signs Date Time Temp Pulse Resp B/P (MAP) Pulse Ox O2 Delivery O2 Flow Rate FiO2 01/26/17 08:00 96.0 76 18 175/99 (124) 95 01/26/17 01:48 170/91 (117) 01/26/17 00:00 97.3 72 18 176/104 (128) 95 01/25/17 20:00 97.7 72 20 165/90 (115) 95 01/25/17 16:00 96.7 68 18 171/95 (120) 95 01/25/17 12:00 97.1 67 18 173/96 (121) 98 I/O 01/25/17 01/25/17 01/25/17 01/26/17 01/26/17 01/26/17 07:00 15:00 23:00 07:00 15:00 23:00 Intake Total 340 ml 300 ml 780 ml 1280 ml Output Total 600 ml 200 ml Balance 340 ml 300 ml 180 ml 1080 ml Intake Oral 240 ml 480 ml 480 ml IV Total 100 ml 300 ml 300 ml 800 ml Output Urine Total 600 ml 200 ml # Voids 2 2 # Bowel Movements 1 0 Result Diagram: 01/26/17 0527 01/26/17 0527 Imaging Last Impressions Abdomen/Pelvis CT 01/23/17 0000 Signed Impressions: Service Date/Time: January 11:39 - CONCLUSION: In the perineal region some inflammatory change extends from the amorphous anterior toward the base of the scrotum with a somewhat linear tubular or metallic abnormality within this. No evidence of abscess or fluid collection. Inflammatory changes toward the base of the scrotum are increased relative to prior exam Agustin Avalos MD Objective Remarks GENERAL: This is a well-nourished, well-developed patient, in no apparent distress. Asleep, snoring in hospital bed. Awakens easily to voice. SKIN: Warm and dry. Multiple tattoos noted. HEAD: Atraumatic. Normocephalic. EYES: Extraocular motions intact. No scleral icterus. No injection or drainage. ENT: Nose without bleeding, purulent drainage. Airway patent. MMM. NECK: Trachea midline. CARDIOVASCULAR: Regular rate and rhythm without murmurs, gallops, or rubs. RESPIRATORY: Clear to auscultation. Breath sounds equal bilaterally. No wheezes , rales, or rhonchi. GASTROINTESTINAL: Abdomen soft, nondistended, nontender. No hepato-splenomegaly , or palpable masses. No guarding. GENITOURINARY: Status post I&D of perineal abscess. Did not examine. MUSCULOSKELETAL: Extremities without clubbing, cyanosis, or edema. NEUROLOGICAL: Awake and alert. Able to move all extremities spontaneously. Normal speech. Procedures 01/23/17 Exam under anesthesia with fistulotomy and drainage of large anterior perineal abscess performed by Dr. Rodriguez. Medications and IVs Current Medications Medications (Trade) Dose Ordered Sig/Harris Route Start Time Stop Time Status Last Admin (NS Flush) 2 ml UNSCH PRN IV FLUSH 01/23/17 06:30 (NS Flush) 2 ml BID IV FLUSH 01/23/17 09:00 01/25/17 12:52 (Narcan Inj) 0.4 mg UNSCH PRN IV PUSH 01/23/17 06:30 (D50w (Vial) Inj) 50 ml UNSCH PRN IV PUSH 01/23/17 10:30 (Glucagon Inj) 1 mg UNSCH PRN OTHER 01/23/17 10:30 (NovoLOG SUPPLEMENTAL SCALE) 1 ACHS SLIDING SCALE SQ 01/23/17 12:00 01/25/17 20:34 (Morphine Inj) 4 mg Q3H PRN IV PUSH 01/23/17 19:00 (Prinivil) 5 mg DAILY PO 01/24/17 17:30 Future Hold 01/25/17 09:00 (Zofran Inj) 4 mg Q8HR PRN IV PUSH 01/24/17 17:45 01/26/17 08:39 ([place] 5-325 Mg) 1 tab Q6H PRN PO 01/25/17 09:30 01/25/17 20:35 (Tylenol) 650 mg Q4H PRN PO 01/25/17 09:30 (Erin-Colace) 1 tab BID PO 01/25/17 21:00 Sodium Chloride 1,000 ml @ 100 mls/hr Q10H IV 01/25/17 10:15 01/26/17 02:55 (Catapres) 0.1 mg Q6H PRN PO 01/25/17 10:30 (Levemir Inj) 5 units DAILY SQ 01/25/17 10:30 01/26/17 08:29 (Norvasc) 5 mg DAILY PO 01/26/17 09:00 01/26/17 08:37 A/P Assessment and Plan 41-year-old male with a past medical history significant for recurrent perianal abscesses who presents to [facility] ED with complaints of pain and swelling in the perineal and scrotal area for the past 4 days that that began draining a large amount of pus and blood earlier this morning. Sepsis with elevated white count 15.9, pulse 99 and source of recurrent perineal abscess - s/p exam under anesthesia with fistulotomy and drainage of large anterior perineal abscess 01/23/[address] Rodriguez. Wet to dry dressing changes. - Cipro and Vancomycin discontinued due to worsening renal fxn. - White count trending back up, 15.9 --> 12.1 --> 13.1. Repeat CBC in am. Patient does not appear septic at this time. He is afebrile. Heart rate is 76. IS at bedside, encourage use. - continue IV fluids - CT of abdomen and pelvis obtained and personally reviewed showing inflammatory changes - Continue pain management. Trial Hydrocodone 5/325mg prn pain. - Blood cultures show no growth 2 day - Zofran prn N/V CLAUDIA - Creatinine trending up - Likely due to recent contrast, ?vancomycin. - Vancomycin and ciprofloxacin discontinued. - Avoid nephrotoxic agents - Continue IV fluids - Strict I&Os. Decreased urine output. PVR 16. - UA with proteinuria, small leukocytes, occasional bacteria, culture indicated - Renal US, FENa ordered - Consult Nephrology - Continue to monitor kidney function. A.m. labs ordered. Hypertension - Uncontrolled - Discontinue lisinopril due to worsening kidney function. Begin Norvasc 5 mg daily. Hydralazine 25 mg 1 dose. Begin Hydralazine 10mg TID. - Clonidine 0.1 mg when necessary with parameters - Monitor BP and adjust treatment accordingly. Hypokalemia - By mouth repletion ordered - mag level 1.6 - A.m. labs to monitor response Diabetes, newly diagnosed - Hemoglobin A1c 9.7 - Discussed findings with patient. Diabetic teaching. Patiently to follow- up with PCP in 3 months to repeat hemoglobin A1c. - continue Accu-Cheks. Insulin sliding scale. - Unable to start metformin 500 mg twice a day due to recent contrast for CT. Continue Levemir 5u daily. Blood sugars better controlled, 140 this a.m. - Continue diabetic heart healthy diet Macrocytosis - Likely due to alcohol consumption Constipation - advised on OOB - Erin-Colace by mouth twice a day - + BM ?ERIN - Patient endorses strong family history of ERIN - Recommended patient follow-up with pulmonology to have sleep study done as outpatient. DVT prophylaxis - Bilateral SCD/NANDINI hose - Heparin subcutaneous Discussed with patient, Sabrina LANGE and Dr. Thomas Discharge Planning Pending improvement in renal function Holley Singh Jan 26, 2017 10:54
[2017-01-26 12:00] VITALS: BP 172/92; PULSE 77; RESP 18; TEMP 96.7; O2SAT 99
[2017-01-26] MEDS: HEPARIN SODIUM - SQ 10,000 UNITS/ML VIAL SQ SCH ×2 (12:32→21:39)
[2017-01-26] MEDS: hydrALAZINE HCL 10 MG TAB PO SCH ×2 (15:36→21:39)
[2017-01-26 16:00] VITALS: BP 172/94; PULSE 73; RESP 18; TEMP 97.9; O2SAT 97
--- NOTE | 2017-01-26 16:00 | MB ---
cc: JOHN BARAHONA MD DATE OF CONSULTATION: 01/26/2017. REASON FOR CONSULTATION: Acute renal failure management. HISTORY OF PRESENT ILLNESS: This is a 41-year-old male with a history of recurrent perianal abscesses. The patient presented to the emergency room on January 23 with ongoing pain and swelling in the perianal and scrotal area. He was seen with colorectal surgery and the patient had an apparent recurrent perianal abscess. He had a fistulotomy and drainage of an anterior perianal abscess on January 23. At that time, he had a preoperative CT of the abdomen with contrast. The patient had been started on empiric antibiotics with Cipro as well as vancomycin. The patient did well surgically and is feeling better. His blood cultures remain negative. However, the patient had increase in his creatinine level. His creatinine was initially 0.8 at the time of admission and it gradually trended up to a level 2.3 now. Given the acute renal failure, the patient's Vancomycin and Cipro were stopped and he was started on IV fluids earlier today. Nephrology was consulted for further evaluation of acute renal failure. The patient is also being managed for blood pressure with hypertension and also has a newly diagnosed finding of diabetes with a hemoglobin A1c of 9.7 on this admission and he is being managed for that with insulin. At this time, the patient is resting in bed comfortably. He reports having some decreased appetite and was feeling much better since his admission. He has been walking around and no fevers or chills otherwise. Nephrology was consulted for further evaluation. REVIEW OF SYSTEMS: No fevers, chills, no nausea, no vomiting. No diarrhea. The patient does have some constipation. No dysuria. No chest pains. No shortness of breath. No dizziness or loss of consciousness. Otherwise the review of systems is negative. PAST MEDICAL HISTORY: His past medical history includes: 1. Recurrent perianal abscesses. 2. A new diagnosis of diabetes type 1 this admission. PAST SURGICAL HISTORY: 1. Incision and drainage of ischiorectal abscess in June of this year with a fistulotomy and placement of [place] with Dr. Rodriguez. 2. In March of 2014, incision and drainage of perianal abscess with drain placement. 3. Previous appendectomy. MEDICATIONS: No medications are being taken at home. ALLERGIES: CODEINE. FAMILY HISTORY: Mother with stroke. Father alive and healthy. SOCIAL HISTORY: The patient currently smokes with tobacco use of one pack of cigarettes per day. Also ongoing alcohol use with two beers daily. No IV drug use; however does currently smoke marijuana. PHYSICAL EXAMINATION: VITAL SIGNS: On physical exam at time of evaluation temperature 96.7, pulse 27, respiratory 18, blood pressure 172/92, pulse ox 99% on room air. GENERAL: Awake, alert, oriented, no apparent distress. HEAD, EYES, EARS, NOSE, THROAT: Neck soft supple. CARDIAC: Regular rate and rhythm. PULMONARY: Lungs clear to auscultation. ABDOMEN: The abdomen is soft, nontender and nondistended. EXTREMITIES: No edema. LABORATORY FINDINGS: Initial creatinine was 0.8. Current creatinine is 2.38. Sodium 142, potassium 3.4, chloride 108, bicarbonate 22, BUN 13, creatinine 2.3 with a glucose of 131, calcium 7.7, magnesium 1.6. Urinalysis with 100 protein, small leukocyte esterase. White count 13.1, hemoglobin 12.7, hematocrit 37.2 with platelet count of 179,000. ASSESSMENT AND PLAN: 1. Acute kidney injury. The patient presented with acute kidney injury. He had an initial creatinine of 0.8 at the time of his presentation. This has trended out to a level of 2.3. The patient is making urine output with 800 cc of urine output recorded over the last 24 hours. At this point, I believe the patient has acute kidney injury with a multifactorial etiology. He did receive contrast exposure on January [address] imaging to evaluate his perianal abscess. At that time, he received 80 cc of contrast. In addition, the patient was initially started on Vancomycin as well as Ciprofloxacin and he had an incision and drainage of the abscess on January 23. It is likely that all these factors contributed to the acute renal injury. At this point, he is non-oliguric with possible nonoliguric acute tubular necrosis. His creatinine is at 2.3 at this point; however, he is making urine. His blood pressure has otherwise been stable with no findings of any hypotension during this hospitalization. At this point, I agree with IV fluids post contrast. The patient did get contrast two days ago and we may be seeing the effects of this now. He continues on normal saline at 100 cc/hour and continue this for now. The patient is drinking p.o. fluids. He has had somewhat of a diminished appetite; however, he is feeling well otherwise. Continue to monitor at this point. His JANET inhibitor was held as well. I expect he should have improvement in the renal function over time; however, continue to closely monitor at this point. There is no indication of need for dialysis at this time. 2. Hypertension: The patient's blood pressure medications have been managed here. His JANET inhibitor has been held. He is on Norvasc as well as hydralazine and his systolic blood pressure is in the 170s at this point. His blood pressure medicines were adjusted earlier today. Continue to monitor. 3. Diabetes. The patient has a hemoglobin A1c of 9.7 with new findings of diabetes on this admission. Metformin has been held due to renal failure. He has been started on insulin. A renal ultrasound has been ordered and the results are pending at this point. It is possible that he may have some mild diabetic kidney disease; however, his baseline creatinine was normal and he has no significant proteinuria on his urinalysis with only 100 protein direct with a dipstick protein. Continue to monitor at this point and continue with insulin management. 4. Perianal abscess. The patient had an incision and drainage of this perianal abscess on January 23. His blood cultures are negative and his antibiotics have been held. He is afebrile and feeling well otherwise. Continue closely monitoring. Continue with wound care. If antibiotics are used, renal dose all antibiotics; however, continue to monitor at this point. MD LURDES Wylie/COLLETTE /3:28 PM /3:42 PM AURELIA
--- NOTE | 2017-01-26 17:26 | RADRPT ---
EXAM DATE/TIME: 01/26/2017 16:30 [place] COMPARISON: No previous studies available for comparison. INDICATIONS : Increased BUN and creatinine. MEDICAL HISTORY : Cholelithiasis. Diabetes. SURGICAL HISTORY : Appendectomy. ENCOUNTER: Initial ACUITY: 1 day PAIN SCORE: 0/10 LOCATION: Bilateral flank MEASUREMENTS: RIGHT KIDNEY: 12.0 x 5.9 x 7.2 cm LEFT KIDNEY: 12.1 x 6.5 x 7.6 cm FINDINGS: RIGHT KIDNEY: Renal cortex is normal in thickness and echotexture. No hydronephrosis, stone, or mass. LEFT KIDNEY: Renal cortex is normal in thickness and echotexture. No hydronephrosis, stone, or mass. BLADDER: Within normal limits given the degree of distension. CONCLUSION: 1. Unremarkable ultrasound examination of the kidneys. Christopher Pastor MD on January 26, 2017 at 17:25 Board Certified Radiologist. This report was verified electronically.
[2017-01-26 20:00] VITALS: BP 170/82; PULSE 77; RESP 20; TEMP 97.5; O2SAT 97
[2017-01-27] VITALS (7 sets, daily range): BP systolic 177–198; BP diastolic 93–105; PULSE 58–80; RESP 18–20; TEMP 96.1–98.5; O2SAT 96–99
[2017-01-27] MEDS: SODIUM CHLOR 0.9% 1000 ML INJ 1,000 ML IV SCH ×3 (02:16→22:46)
[2017-01-27] MEDS: hydrALAZINE HCL 10 MG TAB PO SCH ×3 (05:36→22:46)
[2017-01-27 07:47] LABS: AUTOMATED NEUTROPHIL # 9.7 TH/MM3 (1.8-7.7); BASOPHIL # 0.1 TH/MM3 (0-0.2); BASOPHIL % 0.4 % (0.0-2.0); EOSINOPHIL # 0.2 TH/MM3 (0-0.4); EOSINOPHIL % 1.2 % (0.0-4.0); HEMATOCRIT 39.9 % (39.0-51.0); HEMO FLAGS DIFF FINAL; LYMPH % 13.6 % (9.0-44.0); LYMPHOCYTE # 1.8 TH/MM3 (1.0-4.8); MEAN CELL VOLUME 104.2 FL (80.0-100.0); MEAN CORPUSCULAR HEMOGLOBIN 35.3 PG (27.0-34.0); MEAN CORPUSCULAR HGB CONC 33.8 % (32.0-36.0); MONO % 13.6 % (0.0-8.0); NEUT % 71.2 % (16.0-70.0); PLATELET COUNT 198 TH/MM3 (150-450); RED BLOOD COUNT 3.83 MIL/MM3 (4.50-5.90); RED CELL DISTRIBUTION WIDTH 12.7 % (11.6-17.2); WHITE BLOOD COUNT 13.6 TH/MM3 (4.0-11.0)
[2017-01-27] MEDS: SODIUM CHLORIDE 0.9% FLUSH 10 ML FLUSH IV FLUSH SCH ×2 (07:56→21:00)
[2017-01-27] MEDS: INSULIN ASPART SUPPLEMENTAL SCALE SQ SCH ×4 (07:57→21:00)
[2017-01-27 08:09] LABS: ALT (GPT) 56 U/L (12-78); ANION GAP 8 MEQ/L (5-15); AST (GOT) 42 U/L (15-37); BICARBONATE 23.7 MEQ/L (21.0-32.0); BLOOD UREA NITROGEN 12 MG/DL (7-18); CHLORIDE 108 MEQ/L (98-107); GLOMERULAR FILTRATION RATE 33 ML/MIN (>89); POTASSIUM 3.3 MEQ/L (3.5-5.1); SODIUM (NA) 140 MEQ/L (136-145)
[2017-01-27 08:11] LABS: ALKALINE PHOSPHATASE 79 U/L (45-117); TOTAL BILIRUBIN ADULT 0.5 MG/DL (0.2-1.0)
[2017-01-27] MEDS: INSULIN DETEMIR 100 UNITS/ML VIAL SQ SCH (08:38)
[2017-01-27] MEDS: amLODIPine BESYLATE 5 MG TAB PO SCH (08:39)
[2017-01-27] MEDS: DOCUSATE SODIUM 50 MG/SENNA 8.6 MG TAB PO SCH ×2 (08:39→21:00)
[2017-01-27] MEDS ORDERED: POTASSIUM CHLORIDE 10 MEQ CONTROLLED RELEASE TAB PO ONE (10:00)
--- NOTE | 2017-01-27 11:09 | HHI.PR ---
Subjective Remarks Patient i nbed, he is ambulating without any problems. Says mirella is also urinating more and goes to the bath more often. Patient says he is no more nauseated and no vomiting. Able to keep food down. Feels improving. and wants to go home. Kidney function however without much improvement. Kidney specialist ff Objective Vitals Vital Signs Date Time Temp Pulse Resp B/P (MAP) Pulse Ox O2 Delivery O2 Flow Rate FiO2 01/27/17 08:00 96.9 75 20 183/96 (125) 96 01/27/17 04:46 96.1 78 18 198/98 (131) 98 01/27/17 01:14 97.2 58 18 187/97 (127) 97 01/26/17 20:00 97.5 77 20 170/82 (111) 97 01/26/17 16:00 97.9 73 18 172/94 (120) 97 01/26/17 12:00 96.7 77 18 172/92 (118) 99 I/O 01/26/17 01/26/17 01/26/17 01/27/17 01/27/17 01/27/17 07:00 15:00 23:00 07:00 15:00 23:00 Intake Total 1280 ml 1200 ml 760 ml 120 ml Output Total 200 ml Balance 1080 ml 1200 ml 760 ml 120 ml Intake Oral 480 ml 1200 ml 760 ml 120 ml IV Total 800 ml Output Urine Total 200 ml Bladder Scan Volume Amount 16 ml # Voids 2 6 3 # Bowel Movements 0 4 Result Diagram: 01/27/1717 01/27/1717 Imaging Last Impressions Renal Ultrasound 01/26/17 0000 Signed Impressions: Service Date/Time: Thursday, January 26, 2017 16:30 - CONCLUSION: 1. Unremarkable ultrasound examination of the kidneys. Christopher Pastor MD Abdomen/Pelvis CT 01/23/17 0000 Signed Impressions: Service Date/Time: January 11:39 - CONCLUSION: In the perineal region some inflammatory change extends from the amorphous anterior toward the base of the scrotum with a somewhat linear tubular or metallic abnormality within this. No evidence of abscess or fluid collection. Inflammatory changes toward the base of the scrotum are increased relative to prior exam Agustin Avalos MD Objective Remarks GENERAL: This is a well-nourished, well-developed patient, in no apparent distress. Asleep, snoring in hospital bed. Awakens easily to voice. CARDIOVASCULAR: Regular rate and rhythm without murmurs, gallops, or rubs. RESPIRATORY: Clear to auscultation. Breath sounds equal bilaterally. No wheezes , rales, or rhonchi. GASTROINTESTINAL: Abdomen soft, nondistended, nontender. No hepato-splenomegaly , or palpable masses. No guarding. GENITOURINARY: Status post I&D of perineal abscess. MUSCULOSKELETAL: Extremities without clubbing, cyanosis, or edema. NEUROLOGICAL: Awake and alert. Able to move all extremities spontaneously. Normal speech. Procedures 01/23/17 Exam under anesthesia with fistulotomy and drainage of large anterior perineal abscess performed by Dr. Rodriguez. A/P Assessment and Plan 41-year-old male with a past medical history significant for recurrent perianal abscesses who presents to [facility] ED with complaints of pain and swelling in the perineal and scrotal area for the past 4 days that that began draining a large amount of pus and blood earlier this morning. Sepsis with elevated white count 15.9, pulse 99 and source of recurrent perineal abscess - s/p exam under anesthesia with fistulotomy and drainage of large anterior perineal abscess 01/23/[address] Rodriguez. Wet to dry dressing changes. - Cipro and Vancomycin discontinued due to worsening renal fxn. - White count trending back up, 15.9 --> 12.1 --> 13.1. Repeat CBC in am. Patient does not appear septic at this time. He is afebrile. Heart rate is 76. IS at bedside, encourage use. - continue IV fluids - CT of abdomen and pelvis obtained and personally reviewed showing inflammatory changes - Continue pain management. Trial Hydrocodone 5/325mg prn pain. - Blood cultures show no growth 3 day - Zofran prn N/V CLAUDIA - Creatinine trending up - Likely due to recent contrast, ?vancomycin. - Vancomycin and ciprofloxacin discontinued. - Avoid nephrotoxic agents - Continue IV fluids - Strict I&Os. Decreased urine output. PVR 16. - UA with proteinuria, small leukocytes, occasional bacteria, culture indicated - Renal US, FENa ordered - Consult Nephrology, appreciate recommendations. Cont IVF - Continue to monitor kidney function. A.m. labs ordered. Hypertension - Uncontrolled - Discontinue lisinopril due to worsening kidney function. Begin Norvasc 5 mg daily. Hydralazine 25 mg 1 dose. Begin Hydralazine 10mg TID. - Clonidine 0.1 mg when necessary with parameters - Monitor BP and adjust treatment accordingly. Hypokalemia - By mouth repletion ordered - mag level 1.6 - A.m. labs to monitor response Diabetes, newly diagnosed - Hemoglobin A1c 9.7 - Discussed findings with patient. Diabetic teaching. Patiently to follow- up with PCP in 3 months to repeat hemoglobin A1c. - continue Accu-Cheks. Insulin sliding scale. - Unable to start metformin 500 mg twice a day due to recent contrast for CT. Continue Levemir 5u daily. Blood sugars better controlled, 140 this a.m. - Continue diabetic heart healthy diet Macrocytosis - Likely due to alcohol consumption Constipation - advised on OOB - Erin-Colace by mouth twice a day - + BM ?ERIN - Patient endorses strong family history of ERIN - Recommended patient follow-up with pulmonology to have sleep study done as outpatient. DVT prophylaxis - Bilateral SCD/NANDINI hose - Heparin subcutaneous Discussed with patient, Sabrina LANGE and Dr. Thomas Discharge Planning Pending improvement in renal function and clearance form nephrology Althea Longoria MD Jan 27, 2017 11:09
[2017-01-27] MEDS: HEPARIN SODIUM - SQ 10,000 UNITS/ML VIAL SQ SCH ×2 (11:47→22:46)
[2017-01-27] MEDS ORDERED: GLUCTES12 (12:59)
[2017-01-27] MEDS ORDERED: AMLO5 PO (12:59)
[2017-01-27] MEDS ORDERED: GLUCKIT15 (12:59)
[2017-01-27] MEDS ORDERED: NOVOLOGP2 SQ (12:59)
[2017-01-27] MEDS ORDERED: BIOM30MI (12:59)
[2017-01-27] MEDS ORDERED: LEVEMIR SQ (12:59)
[2017-01-27] MEDS ORDERED: INSU1MIS15 (12:59)
[2017-01-27] MEDS ORDERED: LANCETS1 MI1 (12:59)
--- NOTE | 2017-01-27 13:00 | HHI.DS ---
Discharge Summary Admission Date Jan 23, 2017 at 06:23 Discharge Date: Jan 27, 2017 Admitting Diagnosis peroneal abscess (1) Perineal abscess ICD Code: L03.315 - Perineal abscess Status: Acute (2) Gastritis ICD Code: K29.70 - Gastritis Status: Acute (3) Atypical chest pain ICD Code: R07.89 - Atypical chest pain Status: Acute (4) Tobacco dependency ICD Code: F17.200 - Tobacco dependency Status: Acute (5) Polysubstance abuse ICD Code: F19.10 - Polysubstance abuse Status: Acute (6) CLAUDIA (acute kidney injury) ICD Code: N17.9 - Acute kidney failure, unspecified (7) Uncontrolled diabetes mellitus ICD Code: E11.65 - Type 2 diabetes mellitus with hyperglycemia Procedures 01/23/17 Exam under anesthesia with fistulotomy and drainage of large anterior perineal abscess performed by Dr. Rodriguez. Brief History - From Admission Written by Holley Singh, acting as scribe for Dr. Thomas on 01/23/17 at 11:56. This is a 41-year-old male with a past medical history significant for recurrent perianal abscesses who presents to [facility] ED with complaints of pain and swelling in the perineal and scrotal area for the past 4 days. He recently underwent I&D of large ischiorectal abscess, fistulotomy and placement of a seton performed by Dr. Rodriguez on 07/10/16 and actually has a follow-up appointment with Dr. Rodriguez this afternoon. Per ED note, patient came into the emergency room with same complaints yesterday was given a prescription for Cipro and Flagyl which he did not fill. Patient reports that early this morning he got up and felt a pinch in the perineal area and began draining a large amount of pus and blood. Patient denies any fever chills or night sweats at home. Denies any vision changes or headache. Denies any nausea, vomiting or abdominal pain. Denies any chest pain or shortness of breath. Does states he has increased pain in the area with bowel movements. CBC/BMP: 01/27/17 0717 01/27/17 0717 Significant Findings Laboratory Tests Test 01/25/17 07:07 01/25/17 12:50 01/26/17 05:27 01/27/17 07:17 White Blood Count 12.1 TH/MM3 (4.0-11.0) 13.1 TH/MM3 (4.0-11.0) 13.6 TH/MM3 (4.0-11.0) Red Blood Count 3.48 MIL/MM3 (4.50-5.90) 3.54 MIL/MM3 (4.50-5.90) 3.83 MIL/MM3 (4.50-5.90) Hemoglobin 12.4 GM/DL (13.0-17.0) 12.7 GM/DL (13.0-17.0) Hematocrit 36.7 % (39.0-51.0) 37.2 % (39.0-51.0) Mean Corpuscular Volume 105.4 FL (80.0-100.0) 105.1 FL (80.0-100.0) 104.2 FL (80.0-100.0) Mean Corpuscular Hemoglobin 35.7 PG (27.0-34.0) 35.7 PG (27.0-34.0) 35.3 PG (27.0-34.0) Neutrophils (%) (Auto) 74.3 % (16.0-70.0) 70.7 % (16.0-70.0) 71.2 % (16.0-70.0) Monocytes (%) (Auto) 11.6 % (0.0-8.0) 13.1 % (0.0-8.0) 13.6 % (0.0-8.0) Neutrophils # (Auto) 9.0 TH/MM3 (1.8-7.7) 9.3 TH/MM3 (1.8-7.7) 9.7 TH/MM3 (1.8-7.7) Monocytes # (Auto) 1.4 TH/MM3 (0-0.9) 1.7 TH/MM3 (0-0.9) 1.8 TH/MM3 (0-0.9) Creatinine 2.11 MG/DL (0.60-1.30) 2.38 MG/DL (0.60-1.30) 2.19 MG/DL (0.60-1.30) Random Glucose 224 MG/DL (74-106) 131 MG/DL (74-106) 113 MG/DL (74-106) Calcium Level 7.7 MG/DL (8.5-10.1) 7.7 MG/DL (8.5-10.1) 7.9 MG/DL (8.5-10.1) Estimat Glomerular Filtration Rate 34 ML/MIN (>89) 30 ML/MIN (>89) 33 ML/MIN (>89) Total Protein 5.9 GM/DL (6.4-8.2) Urine Protein 100 mg/dL (NEG-TRACE) Urine Leukocyte Esterase SMALL (NEG) Urine Bacteria OCC /hpf (NONE) Potassium Level 3.4 MEQ/L (3.5-5.1) 3.3 MEQ/L (3.5-5.1) Chloride Level 108 MEQ/L (98-107) 108 MEQ/L (98-107) Albumin 2.6 GM/DL (3.4-5.0) Aspartate Amino Transf (AST/SGOT) 42 U/L (15-37) Imaging Last Impressions Renal Ultrasound 01/26/17 0000 Signed Impressions: Service Date/Time: Thursday, January 26, 2017 16:30 - CONCLUSION: 1. Unremarkable ultrasound examination of the kidneys. Christopher Pastor MD Abdomen/Pelvis CT 01/23/17 0000 Signed Impressions: Service Date/Time: January 11:39 - CONCLUSION: In the perineal region some inflammatory change extends from the amorphous anterior toward the base of the scrotum with a somewhat linear tubular or metallic abnormality within this. No evidence of abscess or fluid collection. Inflammatory changes toward the base of the scrotum are increased relative to prior exam Agustin Avalos MD PE at Discharge GENERAL: This is a well-nourished, well-developed patient, in no apparent distress. Asleep, snoring in hospital bed. Awakens easily to voice. SKIN: Warm and dry. Multiple tattoos noted. HEAD: Atraumatic. Normocephalic. EYES: Extraocular motions intact. No scleral icterus. No injection or drainage. ENT: Nose without bleeding, purulent drainage. Airway patent. MMM. NECK: Trachea midline. CARDIOVASCULAR: Regular rate and rhythm without murmurs, gallops, or rubs. RESPIRATORY: Clear to auscultation. Breath sounds equal bilaterally. No wheezes , rales, or rhonchi. GASTROINTESTINAL: Abdomen soft, nondistended, nontender. No hepato-splenomegaly , or palpable masses. No guarding. GENITOURINARY: Status post I&D of perineal abscess. Did not examine. MUSCULOSKELETAL: Extremities without clubbing, cyanosis, or edema. NEUROLOGICAL: Awake and alert. Able to move all extremities spontaneously. Normal speech. Pt update on day of discharge In nad, was ambulating in the room. Feels much better. Feels comfortable to go home. Patient is self administering insulin withou any problems. No n/v/d/c. Eatign well. Kidney fx imprpoved cleared by Dr Carroll for DC. Discussed with joey harris patient,nurse, Dr Carroll Hospital Course 41-year-old male with a past medical history significant for recurrent perianal abscesses who presents to [facility] ED with complaints of pain and swelling in the perineal and scrotal area for the past 4 days that that began draining a large amount of pus and blood [employer]PER [employer]. Patien twith sepsis on admission perineal abscess, s/p I&D by Dr Rodriguez colorectal surgeon. Patient with worsening kidney function 2/2 substances contrast use, abx use, nephrology consulted. IV abxb DC cipro and vanc . On IVF, with slow improvement. With new onset uncontrolled DM , had diabetic education also nurse teaching how to self inject insulin. Patient also with nausea..vomiting resolved and tolerated PO intake. Improved, was discharged in stable condition to follow up as OP with PCP and consultants. Sepsis with elevated white count 15.9, pulse 99 and source of recurrent perineal abscess - s/p exam under anesthesia with fistulotomy and drainage of large anterior perineal abscess 01/23/[address] Rodriguez. Wet to dry dressing changes. - Cipro and Vancomycin discontinued due to worsening renal fxn. - White count trending back up, 15.9 --> 12.1 --> 13.1. Repeat CBC in am. Patient does not appear septic at this time. He is afebrile. Heart rate is 76. IS at bedside, encourage use. - continue IV fluids - CT of abdomen and pelvis obtained and personally reviewed showing inflammatory changes - Continue pain management. Trial Hydrocodone 5/325mg prn pain. - Blood cultures show no growth 3 day - Zofran prn N/V CLAUDIA - Creatinine trending up - Likely due to recent contrast, ?vancomycin. - Vancomycin and ciprofloxacin discontinued. - Avoid nephrotoxic agents - Continue IV fluids - Strict I&Os. Decreased urine output. PVR 16. - UA with proteinuria, small leukocytes, occasional bacteria, culture indicated - Renal US, FENa ordered - Consult Nephrology, appreciate recommendations. Cont IVF - Continue to monitor kidney function. A.m. labs ordered. Hypertension - Uncontrolled - Discontinue lisinopril due to worsening kidney function. Begin Norvasc 5 mg daily. Hydralazine 25 mg 1 dose. Begin Hydralazine 10mg TID. - Clonidine 0.1 mg when necessary with parameters - Monitor BP and adjust treatment accordingly. Hypokalemia - By mouth repletion ordered - mag level 1.6 - A.m. labs to monitor response Diabetes, newly diagnosed - Hemoglobin A1c 9.7 - Discussed findings with patient. Diabetic teaching. Patiently to follow- up with PCP in 3 months to repeat hemoglobin A1c. - continue Accu-Cheks. Insulin sliding scale. - Unable to start metformin 500 mg twice a day due to recent contrast for CT. Continue Levemir 5u daily. Blood sugars better controlled, 140 this a.m. - Continue diabetic heart healthy diet Macrocytosis - Likely due to alcohol consumption Constipation - advised on OOB - Erin-Colace by mouth twice a day - + BM ?ERIN - Patient endorses strong family history of ERIN - Recommended patient follow-up with pulmonology to have sleep study done as outpatient. DVT prophylaxis - Bilateral SCD/NANDINI hose - Heparin subcutaneous Discussed with patient, nurse Discharge Planning Pending improvement in renal function and clearance form nephrology Pt Condition on Discharge: Stable Discharge Disposition: Discharge Home Discharge Time: > 30 minutes Discharge Instructions DIET: Follow Instructions for: Renal Failure Diet Additional Diet Instructions: drink plenty of fluids Activities you can perform: Regular-No Restrictions Follow up Referrals: Appointment for Follow Up - 1 Week with Luis Rodriguez MD Nephrology - 1 Week with Darrell Marr MD PCP Follow-up - 2-3 Days New Medications: Blood Glucose Monitoring W/Device (Glucocom Blood Glucose Mo W/Device) 1 Kit Kit KIT .ROUTE DIRECTED for Blood Sugar Management, #1 Glucocom Test Strips (Glucocom Test Strips) 1 Jumana Jumana EA .ROUTE DIRECTED for Blood Sugar Management, #1 Insulin Aspart Inj (Novolog Inj) 1,000 Unit/10 Ml Vial 1-9 UNITS SQ ACHS for Blood Sugar Management, #10 ML 0 Refills Max dose at bedtime:( )units; sugars less than 70,(0)units; sugars 150-199,(1) unit; sugars 200-249,(3) units; sugars 250-299,(5) units; sugars 300-349,(7) units; sugars greater than 349,(9) units Insulin Syringe/U-100/31G X 5/16" 1 ml (Insulin Syringe/U-100/31G X 5/16" 1 ml) 31 Gauge X 5/16" Mis EA .ROUTE DIRECTED for Blood Sugar Management, #1 0 Refills Lancets (Lancets) 1 Mis Mis EA .ROUTE DIRECTED for Blood Sugar Management, #1 0 Refills Lisinopril (Lisinopril) 5 Mg Tab 5 MG PO DAILY for Blood Pressure Management, #30 TAB 0 Refills Parenteral Therapy Supplies (Sharpsafety Sharps Contai) 1 Mis Mis EA .ROUTE DIRECTED, #1 0 Refills Amlodipine (Norvasc) 5 Mg Tab 10 MG PO DAILY for Blood Pressure Management, #30 TAB Insulin Detemir Inj (Levemir Inj) 1,000 unit/ 10 ML Vial 5 UNITS SQ DAILY for Blood Sugar Management, #30 INJECTION Do not mix with any other Insulin. Discontinued Medications: Ciprofloxacin (Cipro) 500 Mg Tab 500 MG PO BID for Infection for 7 Days, TAB 0 Refills Metronidazole (Flagyl) 500 Mg Tab 500 MG PO BID for Infection for 7 Days, TAB 0 Refills Althea Longoria MD Jan 27, 2017 13:00
--- NOTE | 2017-01-27 18:55 | HHI.NPPN ---
Subjective History of Present Illness 41-year-old male with a history of recurrent perianal abscesses. The patient presented to the emergency room on January 23 with ongoing pain and swelling in the perianal and scrotal area. He was seen with colorectal surgery and the patient had an apparent recurrent perianal abscess. He had a fistulotomy and drainage of an anterior perianal abscess on January 23. Additional Remarks Patient is alert, still has nausea, started eating some, pain is improving. Review of Systems General Constitutional: Fatigue Gastrointestinal Gastrointestinal: Abdominal Pain, Nausea & Vomiting Objective Data Data 01/27/17 01/28/17 19:00 07:00 Intake Total 1560 ml Output Total 2000 ml Balance -440 ml Intake Oral 1560 ml Output Urine Total 2000 ml # Bowel Movements 2 Vital Signs Date Time Temp Pulse Resp B/P (MAP) Pulse Ox O2 Delivery O2 Flow Rate FiO2 01/27/17 16:00 96.9 79 19 188/95 (126) 98 01/27/17 12:00 97.1 74 20 177/93 (121) 96 01/27/17 08:00 96.9 75 20 183/96 (125) 96 01/27/17 04:46 96.1 78 18 198/98 (131) 98 01/27/17 01:14 97.2 58 18 187/97 (127) 97 01/26/17 20:00 97.5 77 20 170/82 (111) 97 -: 01/27/17 0717 01/27/17716 Physical Exam General Appearance: No Acute Distress, Comfortable Eyes Eye Exam: Pupils Equal Throat Throat Exam: Oral Mucosa [place] & Moist Neck Neck Exam: Neck Supple Pulmonary Resp Exam: Breath Sounds Equal, No Distress, Rhonchi, Decreased Bases Cardiology CV Exam: Regular, Normal Sinus Rhythm Gastrointestinal/Abdomen GI Exam: Soft, Non-Tender, Bowel Sounds Present, Distended Extremeties Extremities Exam: Trace Edema Neurologic Neuro Exam: Alert, Awake, Oriented Psychiatric Psych Exam: Appropriate Responses Assessment/Plan Assessment Summary: CLAUDIA/Acute Renal Failure Problem List: (1) Gastritis ICD Codes: K29.70 - Gastritis Status: Acute (2) Perineal abscess ICD Codes: L03.315 - Perineal abscess Status: Acute (3) CLAUDIA (acute kidney injury) ICD Codes: N17.9 - Acute kidney failure, unspecified Plan Patient has been nonoliguric. Develop CLAUDIA, possibly related to ATN, infection rel;ated or contrast. Creatinine now 2.1, and k was low. K is replaced. If Creatinine is same or better in AM, can be discharged from Nephrology. Dr. Carroll will follow in AM. Brittany Blanton MD Jan 27, 2017 18:54
[2017-01-28 01:56] VITALS: BP 172/97; PULSE 80; RESP 18; TEMP 98.2; O2SAT 96
[2017-01-28] MEDS: hydrALAZINE HCL 10 MG TAB PO SCH (04:38)
[2017-01-28] MEDS: ACETAMINOPHEN/HYDROcodone 325 MG/5 MG TAB PO PRN (04:38)
[2017-01-28] MEDS: SODIUM CHLOR 0.9% 1000 ML INJ 1,000 ML IV SCH (04:43)
[2017-01-28 05:34] VITALS: BP 162/87; PULSE 78; RESP 18; O2SAT 96
[2017-01-28 08:00] VITALS: BP 176/90; PULSE 76; RESP 19; TEMP 96.9; O2SAT 97
[2017-01-28] MEDS: INSULIN ASPART SUPPLEMENTAL SCALE SQ SCH ×2 (08:00→12:00)
[2017-01-28] MEDS ORDERED: AMLO5 PO (08:29)
[2017-01-28] MEDS: SODIUM CHLORIDE 0.9% FLUSH 10 ML FLUSH IV FLUSH SCH (08:50)
[2017-01-28] MEDS: DOCUSATE SODIUM 50 MG/SENNA 8.6 MG TAB PO SCH (08:51)
[2017-01-28] MEDS ORDERED: SODIUM CHLOR 0.45% 1000 ML INJ 1,000 ML IV ONE (09:00)
[2017-01-28 09:51] LABS: BICARBONATE 21.9 MEQ/L (21.0-32.0); POTASSIUM 3.7 MEQ/L (3.5-5.1)
[2017-01-28] MEDS: INSULIN DETEMIR 100 UNITS/ML VIAL SQ SCH (09:57)
[2017-01-28] MEDS ORDERED: SODIUM CHLOR 0.45% 1000 ML INJ 1,000 ML IV SCH (10:00)
[2017-01-28] MEDS: HEPARIN SODIUM - SQ 10,000 UNITS/ML VIAL SQ SCH (10:07)
--- NOTE | 2017-01-28 10:58 | HHI.NPPN ---
Subjective History of Present Illness 41-year-old male with a history of recurrent perianal abscesses. The patient presented to the emergency room on January 23 with ongoing pain and swelling in the perianal and scrotal area. He was seen with colorectal surgery and the patient had an apparent recurrent perianal abscess. He had a fistulotomy and drainage of an anterior perianal abscess on January 23. Additional Remarks Patient is alert, doing better Review of Systems General Constitutional: Fatigue Gastrointestinal Gastrointestinal: Abdominal Pain, Nausea & Vomiting Objective Data Data 01/28/17 01/29/17 19:00 07:00 Intake Total 1570 ml Balance 1570 ml Intake Oral 120 ml IV Total 1450 ml Vital Signs Date Time Temp Pulse Resp B/P (MAP) Pulse Ox O2 Delivery O2 Flow Rate FiO2 01/28/17 08:00 96.9 76 19 176/90 (118) 97 01/28/17 05:34 78 18 162/87 (112) 96 01/28/17 01:56 98.2 80 18 172/97 (122) 96 01/27/17 22:44 80 20 183/103 (129) 97 01/27/17 20:00 98.5 76 18 193/105 (134) 99 01/27/17 16:00 96.9 79 19 188/95 (126) 98 01/27/17 12:00 97.1 74 20 177/93 (121) 96 -: 01/27/17 0717 01/28/17 0904 Physical Exam General Appearance: No Acute Distress, Comfortable Eyes Eye Exam: Pupils Equal Throat Throat Exam: Oral Mucosa Casas & Moist Neck Neck Exam: Neck Supple Pulmonary Resp Exam: Breath Sounds Equal, No Distress, Rhonchi, Decreased Bases Cardiology CV Exam: Regular, Normal Sinus Rhythm Gastrointestinal/Abdomen GI Exam: Soft, Non-Tender, Bowel Sounds Present, Distended Extremeties Extremities Exam: Trace Edema Neurologic Neuro Exam: Alert, Awake, Oriented Psychiatric Psych Exam: Appropriate Responses Assessment/Plan Assessment Summary: CLAUDIA/Acute Renal Failure Problem List: (1) Gastritis ICD Codes: K29.70 - Gastritis Status: Acute (2) Perineal abscess ICD Codes: L03.315 - Perineal abscess Status: Acute (3) CLAUDIA (acute kidney injury) ICD Codes: N17.9 - Acute kidney failure, unspecified Plan Cr improved to 1.8 has been diagnosed with diabetes upon this admission no PCP, he is told to modify diet, control BP, BG, risk of progressive kidney failure with uncontrolled diabetes was discussed need to do add ACEI and follow up as out patient Imani Carroll MD Jan 28, 2017 10:58
[2017-01-28] MEDS ORDERED: LISI-519 PO (18:45)
== END 2017-01-28 13:05 | disposition home or self-care (01) | DRG 854 ==
LOC: NEPE 03:12 → NEDA 06:23 → NEPGCP 08:31 → N07A 20:16
PROVIDERS: ADMIT Hospitalist; ATTEND Hospitalist
PROC: 0D9P0ZZ Drainage of Rectum, Open Approach (ICD-10-PCS; principal; 2017-01-23 17:58)
DX: A41.9 Sepsis, unspecified organism (principal); N17.9 Acute kidney failure, unspecified; K61.1 Rectal abscess; F17.210 Nicotine dependence, cigarettes, uncomplicated; F12.90 Cannabis use, unspecified, uncomplicated; E87.6 Hypokalemia; D75.89 Other specified diseases of blood and blood-forming organs; I10 Essential (primary) hypertension; E11.65 Type 2 diabetes mellitus with hyperglycemia; Z90.49 Acquired absence of other specified parts of digestive tract; K59.00 Constipation, unspecified; K29.70 Gastritis, unspecified, without bleeding; R07.89 Other chest pain; G47.33 Obstructive sleep apnea (adult) (pediatric); Z23 Encounter for immunization
CPT/HCPCS: 74177; 76775; 80048; 80053; 81001; 82948; 83036; 83735; 84155; 85025; 85610; 85730; 87040; 90686; 96365; 96367; J0330; J0744; J1170; J1644; J1815; J2250; J2270; J2405; J2543; J3010; J3370; J7030; J7050; Q2038; Q9967

== ENCOUNTER → 2017-02-03 | Outpatient (CLI) | payer SELFPAY ==
[~2017-02-03] MED LIST changes: +AMLO5 PO; +BIOM30MI; -CIPR-9 PO; +GLUCKIT15; +GLUCTES12; +INSU1MIS15; +LANCETS1 MI1; +LEVEMIR SQ; +LISI-519 PO; -METR-1 PO; +NOVOLOGP2 SQ
[2017-02-03 11:51] LABS: BICARBONATE 27.3 MEQ/L (21.0-32.0); POTASSIUM 3.2 MEQ/L (3.5-5.1)
== END ==
LOC: CLAB 10:54
PROVIDERS: ATTEND Hospitalist
DX: N17.9 Acute kidney failure, unspecified (principal)
CPT/HCPCS: 36415; 80048

== ENCOUNTER 2017-04-09 11:42 | Emergency (ER) | payer SELFPAY ==
[2017-04-09 11:43] VITALS: BP 161/96; PULSE 84; RESP 20; TEMP 98.7; O2SAT 100
--- NOTE | 2017-04-09 11:51 | PD ---
HPI Chief Complaint: Medication Refill Request Time Seen by Provider: 11:49 Travel History International Travel<30 days: No Contact w/Intl Traveler<30days: No Traveled to known affect area: No History of Present Illness HPI 41-year-old male presents to the emergency department requesting a refill of his insulin. Patient states that he was prescribed a type of insulin that is too expensive for him and he needs Regular Insulin that he can afford. Patient states his blood glucose was elevated today. He does not want to get too high and he has not had his insulin today. He has no other symptoms to report. PFSH Past Medical History Blood Disorders: No Heart Rhythm Problems: No Cancer: No Cardiovascular Problems: Yes High Cholesterol: No Chemotherapy: No Chest Pain: Yes Diabetes: Yes Diminished Hearing: No Endocrine: No GERD: No Genitourinary: No Hepatitis: No Hiatal Hernia: No Hypertension: No Immune Disorder: No Musculoskeletal: No Neurologic: No Psychiatric: No Reproductive: No Respiratory: No Integumentary: Yes (PREVIOUS ABCESS IN PERINEAL AREA ) Radiation Therapy: No Thyroid Disease: No Ulcer: No Past Surgical History Abdominal Surgery: Yes (appendectomy) AICD: No Appendectomy: Yes Arteriovenous Shunt: No Cardiac Surgery: No Cholecystectomy: No Ear Surgery: No Endocrine Surgery: No Eye Surgery: No Genitourinary Surgery: No Gynecologic Surgery: No Insulin Pump: No Joint Replacement: No Oral Surgery: No Pacemaker: No Thoracic Surgery: No Other Surgery: Yes ( RECTAL ABCESS X 3) Social History Alcohol Use: Yes (2 beer/day) Tobacco Use: Yes ( 1 PPD) Substance Use: Yes (marijuana 2-3 times weekly) Allergies-Medications (Allergen,Severity, Reaction): Coded Allergies: codeine (Verified Allergy, Mild, NAUSEA, 02/04/17) Reported Meds & Prescriptions Reported Meds & Active Scripts Active Novolin R Inj (Insulin Human Regular) 1,000 Unit/10 Ml Vial 1-9 Units SQ ACHS Max dose at bedtime:( )units; sugars less than 70,(0) units; sugars 150-199,(1)unit; sugars 200-249,(3)units; sugars 250-299,(5) units; sugars 300-349,(7)units; sugars greater than 349,(9)units Lisinopril 5 Mg Tab 5 Mg PO DAILY Norvasc (Amlodipine Besylate) 5 Mg Tab 10 Mg PO DAILY Novolog Inj (Insulin Aspart) 1,000 Unit/10 Ml Vial 1-9 Units SQ ACHS Max dose at bedtime:( )units; sugars less than 70,(0)units; sugars 150-199,(1) unit; sugars 200-249,(3) units; sugars 250-299,(5) units; sugars 300-349,(7) units; sugars greater than 349,(9) units Levemir Inj (Insulin Detemir) 1,000 unit/ 10 ML Vial 5 Units SQ DAILY Do not mix with any other Insulin. Sharpsafety Sharps Contai (Parenteral Therapy Supplies) 1 Mis Mis Ea .ROUTE DIRECTED Glucocom Test Strips (Blood Glucose Test Strips) 1 Jumana Jumana Ea .ROUTE DIRECTED Lancets 1 Mis Mis Ea .ROUTE DIRECTED Insulin Syringe/U-100/31G X 5/16" 1 ml 31 Gauge X 5/16" Mis Ea .ROUTE DIRECTED Glucocom Blood Glucose Mo W/Device (Device) 1 Kit Kit Kit .ROUTE DIRECTED Review of Systems Except as stated in HPI: all other systems reviewed are Neg Physical Exam Narrative GENERAL: Well-nourished, well-developed patient in no acute distress. SKIN: Focused skin assessment warm/dry. HEAD: Normocephalic. EYES: No scleral icterus. No injection or drainage. NECK: Supple, trachea midline. No JVD or lymphadenopathy. CARDIOVASCULAR: Regular rate and rhythm without murmurs, gallops, or rubs. RESPIRATORY: Breath sounds equal bilaterally. No accessory muscle use. GASTROINTESTINAL: Abdomen soft, non-tender, nondistended. MUSCULOSKELETAL: No cyanosis, or edema. BACK: Nontender without obvious deformity. No CVA tenderness. Data Data Last Documented VS Orders Orders Ed Discharge Order (04/09/17 11:51) MDM Medical Decision Making Medical Screen Exam Complete: Yes Emergency Medical Condition: Yes Medical Record Reviewed: Yes Differential Diagnosis Medication refill versus medication noncompliance versus normal exam Narrative Course 41-year-old male presents to emergency department for evaluation and medication refill. Patient presents with prescriptions for short acting insulin. I will give the patient a prescription for regular insulin with a good Rx coupon. It is sliding scale as he was prescribed prior. Blood glucose is within normal limits here. He'll be discharged at this time. Diagnosis Primary Impression: Uncontrolled diabetes mellitus Qualified Codes: E11.8 - Type 2 diabetes mellitus with unspecified complications; E11.65 - Type 2 diabetes mellitus with hyperglycemia Additional Impression: Medication refill Referrals: [facility] Patient Instructions: Diabetic Hyperglycemia (ED), General Instructions Additional Instructions: FOLLOW UP WITH A PRIMARY CARE PROVIDER EAT REGULARLY RETURN IMMEDIATELY WITH ACUTE WORSENING OF SYMPTOMS Med/Other Pt SpecificInfo: Prescription(s) given, No Change to Meds Scripts Insulin Human Regular Inj (Novolin R Inj) 1,000 Unit/10 Ml Vial 1-9 UNITS SQ ACHS for Blood Sugar Management, #10 ML 0 Refills Max dose at bedtime:( )units; sugars less than 70,(0) units; sugars 150-199,(1)unit; sugars 200-249,(3)units; sugars 250-299,(5) units; sugars 300-349,(7)units; sugars greater than 349,(9)units Prov: Debo Ricardo 04/09/17 Disposition: 01 DISCHARGE HOME Condition: Stable Debo Ricardo Apr 09, 2017 11:51
[2017-04-09] MEDS ORDERED: NOVORP2 SQ (11:57)
== END 2017-04-09 12:07 | disposition home or self-care (01) ==
LOC: NED 11:42
DX: E11.65 Type 2 diabetes mellitus with hyperglycemia (principal); F17.200 Nicotine dependence, unspecified, uncomplicated; Z79.4 Long term (current) use of insulin
CPT/HCPCS: 99283

== ENCOUNTER 2017-05-02 11:23 | Emergency (ER) | payer SELFPAY ==
[~2017-05-02] VITALS: Ht 172.7 cm; Wt 90.9 kg
[~2017-05-02 11:23] MED LIST changes: +NOVORP2 SQ
[2017-05-02 11:25] VITALS: BP 182/103; PULSE 85; RESP 18; TEMP 98.7; O2SAT 99
[2017-05-02] MEDS ORDERED: PROCHLORPERAZINE INJ 10 MG/2 ML VIAL IVP ONE (12:15)
[2017-05-02] MEDS ORDERED: diphenhydrAMINE HCL 50 MG/ML VIAL IVP ONE (12:15)
[2017-05-02] MEDS ORDERED: SODIUM CHLORIDE 0.9% FLUSH 10 ML FLUSH IVF PRN (12:15)
[2017-05-02] MEDS ORDERED: MORPHINE SULFATE 2 MG/ML INJ IV PUSH ONE (12:15)
[2017-05-02] MEDS ORDERED: METOCLOPRAMIDE HCL 10 MG/2 ML VIAL IVP ONE (12:15)
--- NOTE | 2017-05-02 12:24 | PD ---
HPI Chief Complaint: Headache Time Seen by Provider: 12:14 Travel History International Travel<30 days: No Contact w/Intl Traveler<30days: No Traveled to known affect area: No History of Present Illness HPI 41-year-old male with known type 2 diabetes and hypertension presents the emergency department with sudden onset frontal headache since 4:30 PM last evening. Patient denies any specific injury or fever. He does not normally get headaches. He does have some mild photophobia, and nausea but no vomiting. Patient states he tried [id number] medications without improvement. Pain is currently 8 out of 10. The pain is constant. It is not described as sharp. PFSH Past Medical History Blood Disorders: No Heart Rhythm Problems: No Cancer: No Cardiovascular Problems: Yes (HTN) High Cholesterol: No Chemotherapy: No Chest Pain: Yes Diabetes: Yes Diminished Hearing: No Endocrine: No GERD: No Genitourinary: No Hepatitis: No Hiatal Hernia: No Hypertension: No Immune Disorder: No Musculoskeletal: No Neurologic: No Psychiatric: No Reproductive: No Respiratory: No Integumentary: Yes (PREVIOUS ABCESS IN PERINEAL AREA ) Radiation Therapy: No Thyroid Disease: No Ulcer: No Past Surgical History Abdominal Surgery: Yes (appendectomy) AICD: No Appendectomy: Yes Arteriovenous Shunt: No Cardiac Surgery: No Cholecystectomy: No Ear Surgery: No Endocrine Surgery: No Eye Surgery: No Genitourinary Surgery: No Gynecologic Surgery: No Insulin Pump: No Joint Replacement: No Oral Surgery: No Pacemaker: No Thoracic Surgery: No Other Surgery: Yes ( RECTAL ABCESS X 3) Social History Alcohol Use: Yes (2 beer/day) Tobacco Use: Yes ( 1 PPD) Substance Use: Yes (marijuana 2-3 times weekly) Allergies-Medications (Allergen,Severity, Reaction): Coded Allergies: codeine (Verified Allergy, Mild, NAUSEA, 05/02/17) Reported Meds & Prescriptions Reported Meds & Active Scripts Active Novolin R Inj (Insulin Human Regular) 1,000 Unit/10 Ml Vial 1-9 Units SQ ACHS Max dose at bedtime:( )units; sugars less than 70,(0) units; sugars 150-199,(1)unit; sugars 200-249,(3)units; sugars 250-299,(5) units; sugars 300-349,(7)units; sugars greater than 349,(9)units Lisinopril 5 Mg Tab 5 Mg PO DAILY Norvasc (Amlodipine Besylate) 5 Mg Tab 10 Mg PO DAILY Novolog Inj (Insulin Aspart) 1,000 Unit/10 Ml Vial 1-9 Units SQ ACHS Max dose at bedtime:( )units; sugars less than 70,(0)units; sugars 150-199,(1) unit; sugars 200-249,(3) units; sugars 250-299,(5) units; sugars 300-349,(7) units; sugars greater than 349,(9) units Levemir Inj (Insulin Detemir) 1,000 unit/ 10 ML Vial 5 Units SQ DAILY Do not mix with any other Insulin. Sharpsafety Sharps Contai (Parenteral Therapy Supplies) 1 Mis Mis Ea .ROUTE DIRECTED Glucocom Test Strips (Blood Glucose Test Strips) 1 Jumana Jumana Ea .ROUTE DIRECTED Lancets 1 Mis Mis Ea .ROUTE DIRECTED Insulin Syringe/U-100/31G X 5/16" 1 ml 31 Gauge X 5/16" Mis Ea .ROUTE DIRECTED Glucocom Blood Glucose Mo W/Device (Device) 1 Kit Kit Kit .ROUTE DIRECTED Review of Systems Except as stated in HPI: all other systems reviewed are Neg General / Constitutional: No: Fever, Chills Eyes: Positive: Photophobia, No: Diploplia, Blurred Vision, Drainage, Redness, Foreign Body Sensation, Pain, Tearing, Blind Spots, Visual changes, Blindness HENT: Positive: Headaches, No: Vertigo, Lightheadedness, Sore Throat, Rhinitis , Rhinorrhea, Congestion, Nosebleed, Neck Stiffness, Neck Pain, Dental Difficulties, Earache Cardiovascular: No: Chest Pain or Discomfort Respiratory: No: Cough, Shortness of Breath, Wheezing Gastrointestinal: Positive: Nausea, No: Vomiting, Diarrhea, Abdominal Pain Genitourinary: No: Dysuria Musculoskeletal: No: Pain Skin: No Rash Neurologic: No: Weakness Psychiatric: No: Depression Endocrine: No: Polydipsia Hematologic/Lymphatic: No: Easy Bruising Physical Exam Narrative GENERAL: Patient appears in mild to moderate distress. SKIN: Warm and dry. Normal color. Normal turgor. No rash. HEAD: Atraumatic. Normocephalic. No increased pain with palpation. EYES: Pupils equal and round. No scleral icterus. No injection or drainage. ENT: No nasal bleeding or discharge. Mucous membranes pink and moist. Pharynx is clear. Airway is patent. TMs are clear bilaterally. NECK: Trachea midline. Supple and nontender. CARDIOVASCULAR: Regular rate and rhythm. RESPIRATORY: No accessory muscle use. Clear to auscultation. Breath sounds equal bilaterally. GASTROINTESTINAL: Abdomen soft, non-tender, nondistended. Hepatic and splenic margins not palpable. MUSCULOSKELETAL: Extremities without clubbing, cyanosis, or edema. No obvious deformities. NEUROLOGICAL: Awake and alert. No obvious cranial nerve deficits. Motor grossly within normal limits. Five out of 5 muscle strength in the arms and legs. Normal speech. PSYCHIATRIC: Appropriate mood and affect; insight and judgment normal. Data Data Last Documented VS Vital Signs Date Time Temp Pulse Resp B/P (MAP) Pulse Ox O2 Delivery O2 Flow Rate FiO2 05/02/17 13:46 18 05/02/17 13:29 72 135/83 (100) 98 Room Air 05/02/17 11:25 98.7 Orders Orders Complete Blood Count With Diff (05/02/17 12:15) Comprehensive Metabolic Panel (05/02/17 12:15) Act Partial Throm Time (Ptt) (05/02/17 12:15) Ct Brain W/O Iv Contrast(Rout) (05/02/17 12:15) Ecg Monitoring (05/02/17 12:15) Iv Access Insert/Monitor (05/02/17 12:15) Oximetry (05/02/17 12:15) Sodium Chloride 0.9% Flush (Ns Flush) (05/02/17 12:15) Prochlorperazine Inj (Compazine Inj) (05/02/17 12:15) Diphenhydramine Inj (Benadryl Inj) (05/02/17 12:15) Metoclopramide Inj (Reglan Inj) (05/02/17 12:15) Morphine Inj (Morphine Inj) (05/02/17 12:15) Ed Discharge Order (05/02/17 14:13) Labs Laboratory Tests Test 05/02/17 12:27 White Blood Count 13.8 TH/MM3 Red Blood Count 4.53 MIL/MM3 Hemoglobin 16.2 GM/DL Hematocrit 46.0 % Mean Corpuscular Volume 101.6 FL Mean Corpuscular Hemoglobin 35.7 PG Mean Corpuscular Hemoglobin Concent 35.1 % Red Cell Distribution Width 14.8 % Platelet Count 242 TH/MM3 Mean Platelet Volume 9.2 FL Neutrophils (%) (Auto) 67.5 % Lymphocytes (%) (Auto) 20.4 % Monocytes (%) (Auto) 9.6 % Eosinophils (%) (Auto) 1.4 % Basophils (%) (Auto) 1.1 % Neutrophils # (Auto) 9.3 TH/MM3 Lymphocytes # (Auto) 2.8 TH/MM3 Monocytes # (Auto) 1.3 TH/MM3 Eosinophils # (Auto) 0.2 TH/MM3 Basophils # (Auto) 0.2 TH/MM3 CBC Comment DIFF FINAL Differential Comment Activated Partial Thromboplast Time 26.0 SEC Total Protein 8.7 GM/DL Alkaline Phosphatase 90 U/L Alanine Aminotransferase (ALT/SGPT) 59 U/L Total Bilirubin 0.5 MG/DL [facility] Medical Decision Making Medical Screen Exam Complete: Yes Emergency Medical Condition: Yes Medical Record Reviewed: Yes Differential Diagnosis Tension headache. Migraine headache. Intracranial bleed. Electrolyte imbalance. Dehydration. Narrative Course Patient is medically stable at time of exam. CT of the head is ordered without contrast. Labs ordered including CBC, CMP, and coagulation studies. IV access is obtained and the patient is given 25 mg diphenhydramine IV, 10 mg metoclopramide IV, 10 mg seen IV, and [address] of the head is negative for acute process per radiologist. CBC shows leukocytosis of 13.8, coagulation studies are unremarkable. CMP unremarkable. Patient is reassessed and felt to be much improved. Patient felt stable for discharge home. Patient follow up with primary care as needed. Diagnosis Primary Impression: Headache Qualified Codes: R51 - Headache Referrals: Primary Care Physician Patient Instructions: Acute Headache (ED), General Instructions Med/Other Pt SpecificInfo: No Meds Exist/No RX given Condition: Stable Luis Marks May 02, 2017 12:24
[2017-05-02 12:59] LABS: AUTOMATED NEUTROPHIL # 9.3 TH/MM3 (1.8-7.7); BASOPHIL # 0.2 TH/MM3 (0-0.2); BASOPHIL % 1.1 % (0.0-2.0); EOSINOPHIL # 0.2 TH/MM3 (0-0.4); EOSINOPHIL % 1.4 % (0.0-4.0); HEMOGLOBIN 16.2 GM/DL (13.0-17.0); LYMPH % 20.4 % (9.0-44.0); LYMPHOCYTE # 2.8 TH/MM3 (1.0-4.8); MEAN CELL VOLUME 101.6 FL (80.0-100.0); MEAN CORPUSCULAR HEMOGLOBIN 35.7 PG (27.0-34.0); MEAN CORPUSCULAR HGB CONC 35.1 % (32.0-36.0); MEAN PLATELET VOLUME 9.2 FL (7.0-11.0); MONO % 9.6 % (0.0-8.0); MONOCYTE # 1.3 TH/MM3 (0-0.9); NEUT % 67.5 % (16.0-70.0); PLATELET COUNT 242 TH/MM3 (150-450); RED BLOOD COUNT 4.53 MIL/MM3 (4.50-5.90); RED CELL DISTRIBUTION WIDTH 14.8 % (11.6-17.2); WHITE BLOOD COUNT 13.8 TH/MM3 (4.0-11.0)
--- NOTE | 2017-05-02 13:19 | RADRPT ---
EXAM DATE/TIME: 05/02/2017 13:06 [place] COMPARISON: No previous studies available for comparison. INDICATIONS : Headaches for two days. RADIATION DOSE: 40.77 CTDIvol (mGy) MEDICAL HISTORY : Hypertension. Diabetes mellitus type 2. Cardiovascular disease SURGICAL HISTORY : Appendectomy. ENCOUNTER: Initial ACUITY: 2 days PAIN SCALE: 8/10 LOCATION: Bilateral cranial TECHNIQUE: Multiple contiguous axial images were obtained of the head. Using automated exposure control and adj ustment of the mA and/or kV according to patient size, radiation dose was kept as low as reasonably a chievable to obtain optimal diagnostic quality images. DICOM format image data is available electro nically for review and comparison. FINDINGS: CEREBRUM: The ventricles are normal. No evidence of midline shift, mass lesion, hemorrhage or acute infarction . No extra-axial fluid collections are seen. POSTERIOR FOSSA: The cerebellum and brainstem are intact. The 4th ventricle is midline. The cerebellopontine angle i s unremarkable. EXTRACRANIAL: The visualized sinuses are clear. SKULL: The calvaria is intact. No evidence of skull fracture. CONCLUSION: No acute intracranial abnormality is identified. Alek Mary MD on May 02, 2017 at 13:15 Board Certified Radiologist. This report was verified electronically.
[2017-05-02 13:29] VITALS: BP 135/83; PULSE 72; RESP 18; O2SAT 98
[2017-05-02 13:39] LABS: ALKALINE PHOSPHATASE 90 U/L (45-117); ALT (GPT) 59 U/L (12-78); TOTAL BILIRUBIN ADULT 0.5 MG/DL (0.2-1.0); TOTAL PROTEIN 8.7 GM/DL (6.4-8.2)
[2017-05-02 13:46] VITALS: RESP 18
[2017-05-02 14:09] LABS: AST (GOT) 73 U/L (15-37); BICARBONATE 24.4 MEQ/L (21.0-32.0); BLOOD UREA NITROGEN 6 MG/DL (7-18); CHLORIDE 103 MEQ/L (98-107); CREATININE 0.62 MG/DL (0.60-1.30); GLOMERULAR FILTRATION RATE 142 ML/MIN (>89); GLUCOSE,RANDOM 103 MG/DL (74-106); SODIUM (NA) 136 MEQ/L (136-145)
== END 2017-05-02 14:27 | disposition home or self-care (01) ==
LOC: NEPD 11:23
DX: R51 Headache (principal); R11.0 Nausea; H53.149 Visual discomfort, unspecified; D72.829 Elevated white blood cell count, unspecified; E11.9 Type 2 diabetes mellitus without complications; I10 Essential (primary) hypertension; F17.200 Nicotine dependence, unspecified, uncomplicated; Z79.4 Long term (current) use of insulin
CPT/HCPCS: 70450; 80053; 85025; 85730; 96374; 96375; 99285; J0780; J1200; J2270; J2765